=== PATIENT | female | born 1975 | race African-American/Black ===

== ENCOUNTER 2016-10-15 09:01 | Emergency (ER) | payer MEDICAID ==
[~2016-10-15] VITALS: Ht 157.5 cm; Wt 61.7 kg
[~2016-10-15 09:01] MED LIST: CIPROFLOXACIN500 M2 ORAL; FLUCONAZOLE100 MG ORAL; FLUCONAZOLE150 MG ORAL; IBUPROFEN600 MG ORAL; KEFLEX500 MG ORAL; NKM; NORCO 10/3251 EA ORAL; NORCO 5-325 TA1 EACH ORAL; PHENAZOPYRIDIN100 MG ORAL; ZOFRAN ODT4 MG ORAL; ZOFRAN4 MG ORAL
[2016-10-15] MEDS ORDERED: NKM (09:16)
[2016-10-15 09:32] LABS: APPEARANCE,URINE SLIGHTLY CLOUDY; KETONES,URINE 2+ (NEGATIVE); LEUKOCYTE ESTERASE ,URINE 2+ (NEGATIVE); NITRITE,URINE NEGATIVE (NEGATIVE); PH,URINE 7 (4.5-8.0); PROTEIN,URINE 1+ (NEGATIVE); UROBILINOGEN,URINE 4 MG/DL (0.0-1.0)
[2016-10-15 09:53] LABS: BACTERIA,URINE FEW /HPF; SQUAMOUS EPITHELIAL CELL,UR FEW /LPF (NONE/OCC); WBC,URINE 15-20 /HPF (0 - 2)
[2016-10-15] MEDS ORDERED: KEFLEX500 MG ORAL (10:04)
[2016-10-15] MEDS ORDERED: FLUCONAZOLE150 MG ORAL (10:04)
[2016-10-15] MEDS ORDERED: PHENAZOPYRIDIN100 MG ORAL (10:04)
[2016-10-15 10:11] VITALS: BP 103/66
--- NOTE | 2016-10-16 07:47 | Emergency Room Report ---
History of Present Illness General Chief Complaint: Female Urogenital Problems Source: Patient, Medical Record Present Illness HPI 40-year-old female presents ED complaining of dysuria. Patient states symptoms started 2 days ago. Notes burning discomfort urination. Notes some white curdish discharge as well. Has history of yeast infections. Pain is throbbing , 10 out of 10, worse with urination. Denies fevers or chills. Denies flank pain. Denies nausea or vomiting. Denies any vaginal eating. No aggravating or relieving factors. Denies any other associated symptoms Allergies: Coded Allergies: METOCLOPRAMIDE (Verified Allergy, Unknown, 03/09/11) PROCHLORPERAZINE (Verified Allergy, Unknown, 03/09/11) Patient History Past Medical History: none Past Surgical History: none Pertinent Family History: none Social History: Denies: alcohol use, drug use, smoking Last Menstrual Period: Partial hysterectomy Now: No : 2 Para: 2 Immunizations: UTD Reviewed Nursing Documentation: PMH: Agreed, PSxH: Agreed Review of Systems All Other Systems: negative except mentioned in HPI Physical Exam Vital Signs Date Time Temp Pulse Resp B/P Pulse Ox O2 Delivery O2 Flow Rate FiO2 10/15/16 09:11 98.6 85 16 101/69 100 Room Air Sp02 EP Interpretation: reviewed, normal General Appearance: no apparent distress, alert, GCS 15, non-toxic Head: normocephalic Eyes: bilateral eye PERRL, bilateral eye normal inspection ENT: normal ENT inspection Neck: full range of motion Respiratory: normal inspection Cardiovascular #1: normal inspection Gastrointestinal: normal bowel sounds, non tender, soft, non-distended, no guarding, no rebound Rectal: deferred Genitourinary: no CVA tenderness Musculoskeletal: normal inspection Neurologic: alert, oriented x3, responsive, motor strength/tone normal, sensory intact, speech normal Psychiatric: judgement/insight normal, memory normal, mood/affect normal, no suicidal/homicidal ideation Skin: normal inspection Medical Decision Making Diagnostic Impression: Primary Impression: UTI (urinary tract infection) Qualified Codes: N39.0 - Urinary tract infection, site not specified Additional Impression: Yeast infection ER Course Hospital Course 40-year-old female presents to ED complaining of dysuria Differential diagnoses include: UTI, cystitis, pyelonephritis Clinical course Patient placed on stretcher. After initial history and physical I ordered UA, urine . UA + For UTI. will treat with diflucan for yeast infection and abx Diagnosis - UTI, yeast infection Stable and discharged home with prescriptions for Rx keflex, pyridium, fluconazole. Instructed to followup with PMD. Return to ED if symptoms recur or worsen Labs Test 10/15/16 09:20 Urine Color Yellow Urine Appearance Slightly cloudy Urine pH 7 (4.5-8.0) Urine Specific [place] 1.010 (1.005-1.035) Urine Protein 1+ (NEGATIVE) Urine Glucose (UA) Negative (NEGATIVE) Urine Ketones 2+ (NEGATIVE) Urine Occult Blood 2+ (NEGATIVE) Urine Nitrite Negative (NEGATIVE) Urine Bilirubin Negative (NEGATIVE) Urine Urobilinogen 4 MG/DL (0.0-1.0) Urine Leukocyte Esterase 2+ (NEGATIVE) Urine RBC 2-4 /HPF (0 - 2) Urine WBC 15-20 /HPF (0 - 2) Urine Squamous Epithelial Cells Few /LPF (NONE/OCC) Urine Bacteria Few /HPF (NONE) Urine HCG, Qualitative Negative Last Vital Signs Date Time Temp Pulse Resp B/P Pulse Ox O2 Delivery O2 Flow Rate FiO2 10/15/16 10:11 98.6 80 14 103/66 97 Room Air Status: improved Disposition: HOME, SELF-CARE Condition: Stable Scripts Phenazopyridine Hcl* (PYRIDIUM*) 100 Mg Tablet 100 MG ORAL THREE TIMES A DAY for 3 Days, TAB Prov: JANE HORN M.D. 10/15/16 Fluconazole (FLUCONAZOLE) 150 Mg Tablet 150 MG ORAL ONCE A WEEK, #2 TAB Prov: JANE HORN M.D. 10/15/16 Cephalexin* (KEFLEX*) 500 Mg Capsule 500 MG ORAL Q6H, #28 CAP 0 Refills Prov: JANE HORN M.D. 10/15/16 Referrals: GABRIELA HERNANDEZ (PCP) Patient Instructions: Urinary Tract Infection, Vaginal Yeast Infection, Adult JANE HORN M.D. Oct 16, 2016 07:47
== END 2016-10-15 10:14 | disposition home or self-care (01) ==
LOC: EMR 09:32
DX: N39.0 Urinary tract infection, site not specified (principal); B37.9 Candidiasis, unspecified; Z90.710 Acquired absence of both cervix and uterus
CPT/HCPCS: 81003; 81025; 87086; 87181; 99284

== ENCOUNTER 2016-11-10 11:22 | Emergency (ER) | payer MEDICAID ==
[~2016-11-10] VITALS: Ht 154.9 cm; Wt 62.1 kg
[2016-11-10 11:30] VITALS: BP 115/78
[2016-11-10] MEDS ORDERED: IBUPROFEN600 MG ORAL (11:51)
[2016-11-10] MEDS ORDERED: ROBAXIN-750750 MG PO (11:51)
--- NOTE | 2016-11-10 11:55 | Emergency Room Report ---
History of Present Illness General Chief Complaint: Pain Source: Patient Present Illness HPI Patient presents with complaints of pain to the right trapezius area Patient reports that last week she had moved Did not feel much discomfort just after that however several days after she started to feel increased pain that region She feels it is radiation upward to the side of the neck also down the right arm Denies any other fall or trauma Denies any chest pain or shortness of breath Rates the pain is 7/10 very minimal improvement with Motrin Allergies: Coded Allergies: METOCLOPRAMIDE (Verified Allergy, Unknown, 03/09/11) PROCHLORPERAZINE (Verified Allergy, Unknown, 03/09/11) Patient History Past Medical History: see triage record Pertinent Family History: none Last Menstrual Period: partial hysterectomy Reviewed Nursing Documentation: PMH: Agreed, PSxH: Agreed Nursing Documentation-PMH Past Medical History: No Stated History Review of Systems All Other Systems: negative except mentioned in HPI Physical Exam Vital Signs Date Time Temp Pulse Resp B/P Pulse Ox O2 Delivery O2 Flow Rate FiO2 11/10/16 11:30 97.3 67 14 115/78 96 Room Air Sp02 EP Interpretation: reviewed, normal General Appearance: well appearing, no apparent distress Head: normocephalic, atraumatic Eyes: bilateral eye EOMI, bilateral eye PERRL ENT: normal pharynx Neck: supple, other - Tender on palpation of the mid point right trapezius, there is some increased muscle tone that region as well, no supraclavicular lymphadenopathy is palpated, midline C-spine is nontender with no obvious step- offs Respiratory: lungs clear Musculoskeletal: other - as above Neurologic: alert, oriented x3, responsive, snubber III-XII nml as tested Skin: no rash, warm/dry Lymphatic: no adenopathy Medical Decision Making Diagnostic Impression: Primary Impression: muscle strain ER Course With the lack of any acute trauma With the patient's history of recent moving and increased muscle skeletal use given the clinical exam patient's findings appear to be in line with musculoskeletal sprain/strain patient will continue on anti-inflammatories Stretching exercises and muscle laxation and follow closely with outpatient primary physician Last Vital Signs Date Time Temp Pulse Resp B/P Pulse Ox O2 Delivery O2 Flow Rate FiO2 11/10/16 11:30 97.3 67 14 115/78 96 Room Air Status: improved Disposition: HOME, SELF-CARE Condition: Improved Scripts Methocarbamol* (ROBAXIN-750*) 750 Mg Tablet 750 MG PO TID, #21 TAB 0 Refills Prov: ROSALIA TAN D.O. 11/10/16 Ibuprofen* (MOTRIN*) 600 Mg Tablet 600 MG ORAL Q8H Y for For Pain, #30 TAB 0 Refills Prov: ROSALIA TAN D.O. 11/10/16 Patient Instructions: Muscle Strain, [id number] Additional Instructions: Patient is provided with the discharge instructions notified to follow up with primary doctor in the next 2-3 days otherwise return to the er with any worsening symptoms. Please note that this report is being documented using [employer] technology. This can lead to erroneous entry secondary to incorrect interpretation by the dictating instrument. ROSALIA TAN D.O. Nov 10, 2016 11:55
[2016-11-10] MEDS ORDERED: Methocarbamol 750mg tab ORAL ONE (12:00)
[2016-11-10 12:02] VITALS: BP 118/72
== END 2016-11-10 12:05 | disposition home or self-care (01) ==
LOC: EMR 11:45
DX: T14.8 Other injury of unspecified body region (principal); X58.XXXA Exposure to other specified factors, initial encounter; Y93.9 Activity, unspecified; Y92.9 Unspecified place or not applicable
CPT/HCPCS: 99284

== ENCOUNTER 2017-03-12 00:43 | Emergency (ER) | payer MEDICAID ==
[~2017-03-12] VITALS: Ht 154.9 cm; Wt 65.8 kg
[~2017-03-12 00:43] MED LIST changes: +ROBAXIN-750750 MG PO
[2017-03-12 01:20] VITALS: BP 104/55
[2017-03-12] MEDS ORDERED: Norco 5mg/325mg tab ORAL ONE (01:30)
[2017-03-12 01:56] LABS: APPEARANCE,URINE CLEAR; KETONES,URINE NEGATIVE (NEGATIVE); LEUKOCYTE ESTERASE ,URINE NEGATIVE (NEGATIVE); NITRITE,URINE NEGATIVE (NEGATIVE); PH,URINE 6 (4.5-8.0); PROTEIN,URINE NEGATIVE (NEGATIVE); UROBILINOGEN,URINE NORMAL MG/DL (0.0-1.0)
[2017-03-12] MEDS ORDERED: NAPROSYN500 M1 ORAL (02:07)
--- NOTE | 2017-03-12 02:08 | Emergency Room Report ---
History of Present Illness General Chief Complaint: Lower Back Pain or Injury Source: Patient Present Illness HPI Is 41-year-old female presents with chief complaint of upper back pain. Pain ongoing for last few days. Worse with movement. No trauma or fever. No nausea no vomiting. No urinary complaint. Pain is 10 out of 10. No radiation. No incontinence of bowel or urine. Allergies: Coded Allergies: METOCLOPRAMIDE (Verified Allergy, Unknown, 03/09/11) PROCHLORPERAZINE (Verified Allergy, Unknown, 03/09/11) Patient History Past Medical History: see triage record, old chart reviewed Past Surgical History: other Pertinent Family History: none Social History: Denies: smoking Last Menstrual Period: none anymore Now: No Immunizations: other Reviewed Nursing Documentation: PMH: Agreed, PSxH: Agreed Nursing Documentation-PM Past Medical History: No Stated History Review of Systems Eye: Denies: blurred vision, eye pain ENT: Denies: ear pain, nose congestion, throat swelling Respiratory: Denies: cough, shortness of breath Cardiovascular: Denies: chest pain, palpitations Gastrointestinal: Denies: abdominal pain, diarrhea, nausea, vomiting Musculoskeletal: Reports: back pain, Denies: joint pain Skin: Denies: rash Neurological: Denies: headache, numbness Endocrine: Denies: increased thirst, increased urine Hematologic/Lymphatic: Denies: easy bruising All Other Systems: negative except mentioned in HPI Physical Exam Vital Signs Date Time Temp Pulse Resp B/P Pulse Ox O2 Delivery O2 Flow Rate FiO2 03/12/17 01:13 98.6 86 18 104/55 99 Room Air vitals normal Sp02 EP Interpretation: reviewed, normal General Appearance: well appearing, no apparent distress, alert Head: normocephalic, atraumatic Eyes: bilateral eye EOMI, bilateral eye PERRL ENT: hearing grossly normal, normal pharynx Neck: full range of motion, supple, no meningismus Respiratory: chest non-tender, lungs clear, normal breath sounds Cardiovascular #1: regular rate, rhythm, no murmur Gastrointestinal: normal bowel sounds, non tender, no mass, no organomegaly, no bruit, non-distended Musculoskeletal: gait/station normal, normal range of motion, other - Patient with diffuse tenderness with palpation to the thoracic area. No trauma. No anesthesia. No midline percussive tenderness. Psychiatric: mood/affect normal Skin: warm/dry Medical Decision Making Diagnostic Impression: Primary Impression: Thoracic back pain Qualified Codes: M54.6 - Pain in thoracic spine ER Course Patient presents with thoracic strain/pain. Is reproducible. Worse with movement. This is muscle skeletal in nature. No evidence of infection. No evidence of fracture dislocation. Urine is negative for infection status no evidence of pyelonephritis. I see no need for x-rays since patient has no trauma. I see no evidence of cauda equina syndrome, spinal after abscess or neoplastic process. We'll discharge home. Last Vital Signs Date Time Temp Pulse Resp B/P Pulse Ox O2 Delivery O2 Flow Rate FiO2 03/12/17 01:20 98.6 18 104/55 99 Room Air 03/12/17 01:13 86 Status: improved Disposition: HOME, SELF-CARE Condition: Stable Scripts Naproxen* (NAPROSYN*) 500 Mg Tablet 500 MG ORAL TWICE A DAY, #30 TAB Prov: STACI LANE M.D. 03/12/17 Patient Instructions: Back Pain, Adult Additional Instructions: Followup with your DrSol in 7 days. Return if symptom worsen this. STACI LANE M.D. Mar 12, 2017 02:08
[2017-03-12 02:17] VITALS: BP 104/55
== END 2017-03-12 02:17 | disposition home or self-care (01) ==
LOC: EMR 01:28
DX: M54.6 Pain in thoracic spine (principal); Z88.8 Allergy status to other drugs, medicaments and biological substances
CPT/HCPCS: 80300; 81003; 81025; 99283

== ENCOUNTER 2017-07-19 11:31 | Emergency (ER) | payer MEDICAID ==
[~2017-07-19] VITALS: Ht 154.9 cm; Wt 61.2 kg
[~2017-07-19 11:31] MED LIST changes: +NAPROSYN500 M1 ORAL
[2017-07-19] MEDS ORDERED: NKM (11:43)
[2017-07-19 11:46] VITALS: BP 99/60
[2017-07-19] MEDS ORDERED: Hydromorphone 0.5mg/0.5ml inj IVP ONE ×2 (12:00→14:15)
[2017-07-19] MEDS ORDERED: Ketorolac 30mg Inj IV ONE (12:00)
[2017-07-19 12:32] LABS: APPEARANCE,URINE TURBID; BILIRUBIN, URINE NEGATIVE (NEGATIVE); GLUCOSE, URINE (UA) NEGATIVE (NEGATIVE); KETONES,URINE 1+ (NEGATIVE); LEUKOCYTE ESTERASE ,URINE NEGATIVE (NEGATIVE); NITRITE,URINE NEGATIVE (NEGATIVE); PH,URINE 6 (4.5-8.0); PROTEIN,URINE NEGATIVE (NEGATIVE); UROBILINOGEN,URINE 1 MG/DL (0.0-1.0)
[2017-07-19 12:33] LABS: COLOR,URINE YELLOW
[2017-07-19 12:35] LABS: EOSINOPHILS % (AUTO) 1.5 % (0.0-3.0); HEMATOCRIT 43.2 % (37.0-47.0); HEMOGLOBIN 14.1 G/DL (12.0-16.0); LYMPHOCYTES % (AUTO) 34.1 % (20.0-45.0); MEAN CORPUSCULAR VOLUME 93 FL (80-99); MONOCYTES % (AUTO) 6.9 % (1.0-10.0); NEUTROPHILS % (AUTO) 56.6 % (45.0-75.0); PLATELET COUNT 263 K/UL (150-450); RED BLOOD COUNT 4.62 M/UL (4.20-5.40); RED CELL DISTRIBUTION WIDTH 11.2 % (11.6-14.8); WHITE BLOOD COUNT 5.4 K/UL (4.8-10.8)
[2017-07-19 12:50] LABS: ALANINE AMINOTRANSFERASE 22 U/L (12-78); ALBUMIN 3.8 G/DL (3.4-5.0); ALBUMIN/GLOBULIN RATIO 1.1 (1.0-2.7); ALKALINE PHOSPHATASE 53 U/L (46-116); ANION GAP 7 mmol/L (5-15); ASPARTATE AMINO TRANSFERASE 19 U/L (15-37); BILIRUBIN,TOTAL 0.5 MG/DL (0.2-1.0); BLOOD UREA NITROGEN 7 mg/dL (7-18); CALCIUM 8.8 MG/DL (8.5-10.1); CARBON DIOXIDE 28 MMOL/L (21-32); CHLORIDE 101 MMOL/L (98-107); CREATININE 0.9 MG/DL (0.55-1.30); POTASSIUM 3.5 MMOL/L (3.5-5.1); SODIUM 136 MMOL/L (136-145)
[2017-07-19 14:00] VITALS: BP 102/65
--- NOTE | 2017-07-19 14:16 | Diagnostic Imaging Report ---
Indication: Left-sided pelvic pain, history of left ovarian cysts Technique: Transabdominal and transvaginal images Comparison: 01/16/2012 Findings: The uterus is surgically absent. Cervical remnant is visualized. Right ovary measures 3.4 cm in length, contains several follicles, including a complex follicle with some internal echoes and another complex septated follicle. The left ovary measures 2.7 cm in length. Impression: Status post supracervical hysterectomy Otherwise unremarkable
[2017-07-19 14:41] VITALS: BP 104/47
[2017-07-19] MEDS ORDERED: cefTRIAXone 1 GM in NS 55 ML IVPB ONE (15:15)
[2017-07-19] MEDS ORDERED: metroNIDAZOLE 500mg tab ORAL ONE (15:15)
[2017-07-19] MEDS ORDERED: Azithromycin 250mg tab ORAL ONE (15:15)
--- NOTE | 2017-07-19 15:37 | Emergency Room Report ---
History of Present Illness General Chief Complaint: Abdominal Pain Source: Patient Present Illness HPI Patient presents emergency department today complaining of abdominal pain. Patient states that she's had suprapubic discomfort and cramps patient has a history of ovarian cysts and feels that she might be getting another ovarian cyst. Of note she did have recent sexual intercourse. She denies any definite vaginal discharge. Denies any dysuria or frequency. Denies any fever chest pain shortness breath. No complaint or noted. Symptoms noted moderate.No other modifying factors. No other associated signs and symptoms. No other complaints were noted. Allergies: Coded Allergies: METOCLOPRAMIDE (Verified Allergy, Unknown, 03/09/11) PROCHLORPERAZINE (Verified Allergy, Unknown, 03/09/11) Patient History Past Medical History: other - ovarian cyst PSxH Narrative pelvic surgery for ovarian cysts and partial hystercetomy Pertinent Family History: none Social History: Denies: smoking, alcohol use, drug use Now: No Reviewed Nursing Documentation: PMH: Agreed, PSxH: Agreed Nursing Documentation-PMH Past Medical History: No History, Except For Review of Systems All Other Systems: negative except mentioned in HPI Physical Exam Vital Signs Date Time Temp Pulse Resp B/P (MAP) Pulse Ox O2 Delivery O2 Flow Rate FiO2 07/19/17 11:36 98.1 63 17 127/68 100 Room Air Sp02 EP Interpretation: reviewed, normal General Appearance: normal inspection, well appearing, no apparent distress, alert Head: atraumatic Eyes: bilateral eye normal inspection ENT: normal ENT inspection, hearing grossly normal, normal voice Neck: normal inspection, full range of motion, supple, no bony tend Respiratory: normal inspection, lungs clear, normal breath sounds, no respiratory distress, no retraction, no wheezing Cardiovascular #1: regular rate, rhythm, no edema Gastrointestinal: normal inspection, normal bowel sounds, soft, no guarding, no hernia, tenderness - suprapubic region Genitourinary: no CVA tenderness, os closed, other - white/yellowish thick vaginal discharge Musculoskeletal: normal inspection, back normal, normal range of motion Neurologic: normal inspection, alert, responsive, speech normal Psychiatric: normal inspection, judgement/insight normal, mood/affect normal Skin: normal inspection, normal color, no rash Medical Decision Making Diagnostic Impression: Primary Impression: Abdominal pain Additional Impression: Vaginitis ER Course Patient presents emergency department today complaining of pelvic pain. Differential considerations include vaginitis, ectopic , ovarian cyst just to name a few.Given the severity of the patient's presentation I felt this is a highly complex patient. This patient required extensive workup. Patient laboratory workup was not present. Patient's pelvic ultrasound did not show any evidence ovarian cysts. Patient's pelvic exam however show discharged in this is concerning for possible STD. Therefore patient was started on IV antibiotics Rocephin and Zithromax and Flagyl orally. Patient will be treated for PID. Because of patient's persistent pain we'll obtain a CT scan. CT scan is negative and will likely discharge patient home. Will advise patient follow with [facility]. And return to emergency room for any worsening symptoms and as needed. Labs Test 07/19/17 12:15 07/19/17 12:20 Urine Color Yellow Urine Appearance Turbid Urine pH 6 (4.5-8.0) Urine Specific [place] 1.015 (1.005-1.035) Urine Protein Negative (NEGATIVE) Urine Glucose (UA) Negative (NEGATIVE) Urine Ketones 1+ (NEGATIVE) Urine Occult Blood Negative (NEGATIVE) Urine Nitrite Negative (NEGATIVE) Urine Bilirubin Negative (NEGATIVE) Urine Urobilinogen 1 MG/DL (0.0-1.0) Urine Leukocyte Esterase Negative (NEGATIVE) Urine HCG, Qualitative Negative White Blood Count 5.4 K/UL (4.8-10.8) Red Blood Count 4.62 M/UL (4.20-5.40) Hemoglobin 14.1 G/DL (12.0-16.0) Hematocrit 43.2 % (37.0-47.0) Mean Corpuscular Volume 93 FL (80-99) Mean Corpuscular Hemoglobin 30.5 PG (27.0-31.0) Mean Corpuscular Hemoglobin Concent 32.6 G/DL (32.0-36.0) Red Cell Distribution Width 11.2 % (11.6-14.8) Platelet Count 263 K/UL (150-450) Mean Platelet Volume 6.8 FL (6.5-10.1) Neutrophils (%) (Auto) 56.6 % (45.0-75.0) Lymphocytes (%) (Auto) 34.1 % (20.0-45.0) Monocytes (%) (Auto) 6.9 % (1.0-10.0) Eosinophils (%) (Auto) 1.5 % (0.0-3.0) Basophils (%) (Auto) 1.0 % (0.0-2.0) Sodium Level 136 MMOL/L (136-145) Potassium Level 3.5 MMOL/L (3.5-5.1) Chloride Level 101 MMOL/L (98-107) Carbon Dioxide Level 28 MMOL/L (21-32) Anion Gap 7 mmol/L (5-15) Blood Urea Nitrogen 7 mg/dL (7-18) Creatinine 0.9 MG/DL (0.55-1.30) Estimat Glomerular Filtration Rate > 60 mL/min (>60) Glucose Level 85 MG/DL (74-106) Calcium Level 8.8 MG/DL (8.5-10.1) Total Bilirubin 0.5 MG/DL (0.2-1.0) Aspartate Amino Transf (AST/SGOT) 19 U/L (15-37) Alanine Aminotransferase (ALT/SGPT) 22 U/L (12-78) Alkaline Phosphatase 53 U/L (46-116) Total Protein 7.4 G/DL (6.4-8.2) Albumin 3.8 G/DL (3.4-5.0) Globulin 3.6 g/dL Albumin/Globulin Ratio 1.1 (1.0-2.7) Lipase 183 U/L (73-393) CT/MRI/US Diagnostic Results CT/MRI/US Diagnostic Results : Imaging Test Ordered: us neg for torsion or cyst Last Vital Signs Date Time Temp Pulse Resp B/P (MAP) Pulse Ox O2 Delivery O2 Flow Rate FiO2 07/19/17 14:41 97.0 64 16 104/47 99 Room Air Status: improved Disposition: HOME, SELF-CARE Condition: Stable Referrals: GABRIELA HERNANDEZ (PCP) JOSE LAMA M.D. Jul 19, 2017 15:37
[2017-07-19] MEDS ORDERED: NORCO 5-325 TA1 EACH ORAL (15:38)
[2017-07-19] MEDS ORDERED: DIFLUCAN100 MG ORAL (15:38)
[2017-07-19] MEDS ORDERED: IBUPROFEN600 MG ORAL (15:38)
--- NOTE | 2017-07-19 16:24 | Diagnostic Imaging Report ---
Clinical Indication: Left lower quadrant pain, nausea, vomiting Technique: No oral contrast utilized, per emergency room physician request IV administration nonionic contrast. Venous phase spiral acquisition obtained through the abdomen and pelvis. Multiplanar reconstructions were generated. Total dose length product 586 mGycm. CTDIvol(s) 12 mGy. Dose reduction achieved using automated exposure control Comparison: 11/30/[address] scan, also 09/10/[address] Findings: The appendix is prominent but gas filled, appears normal and unchanged from the previous exam. No evidence of diverticulosis or diverticulitis. No small bowel distention. No free or loculated intraperitoneal air or fluid is evident. Some dense material is seen dependently within the stomach. The distal esophagus is unremarkable. There is equivocal mild gastric antral wall thickening. The gallbladder is surgically absent. The extrahepatic bile ducts are somewhat ectatic, common bile duct measuring up to 8 mm in diameter. This is unchanged from the prior exam. There is mild central intrahepatic biliary ductal dilatation. There is focal fatty infiltration in the usual location adjacent to the falciform ligament, a new finding. No other focal abnormality. The pancreas, spleen, adrenals, right kidney are unremarkable. The left kidney demonstrates subcentimeter low-attenuation interpolar region lesion which is too small to characterize but unchanged from the previous exam. The previously reported left lower pole renal calyceal calculus is equivocally visualized currently, less well-demonstrated due to the presence of IV contrast on the current exam. No evidence of ureteral calculi, hydronephrosis, or hydroureter. No retroperitoneal or mesenteric mass or adenopathy. The patient is status post supracervical hysterectomy with cervical stump still present. Prominent follicles are seen in the right ovary, also demonstrated on recent ultrasound. No pelvic mass or adenopathy. Previously demonstrated right ovarian cyst is no longer evident. Labial jewelry is present. The included lung bases are clear. The bones are unremarkable. Impression: Equivocal mild gastric antral wall thickening, gastritis or peptic ulcer disease not completely excludable. Correlate with clinical findings No acute process otherwise Mild intrahepatic biliary ductal dilatation, also evident previously. No definite definite obstructing lesion. Nonetheless, occult downstream obstruction not completely excludable, correlation with liver function tests is advised Postsurgical changes as described, including prior supracervical hysterectomy and cholecystectomy. Nonobstructive left lower pole renal calyceal calculus, also previously demonstrated New finding of focal fatty infiltration in the liver The CT scanner at [facility] is accredited by the [employer] and the scans are performed using protocols designed to limit radiation exposure to as low as reasonably achievable to attain images of sufficient resolution adequate for diagnostic evaluation.
[2017-07-19] MEDS ORDERED: METROGEL-VAGINA70 G1 VAGIN (16:47)
[2017-07-19 16:50] VITALS: BP 108/60
== END 2017-07-19 16:50 | disposition home or self-care (01) ==
LOC: EMR 12:20
DX: R10.9 Unspecified abdominal pain (principal); N76.0 Acute vaginitis; Z90.711 Acquired absence of uterus with remaining cervical stump; Z88.8 Allergy status to other drugs, medicaments and biological substances; K76.0 Fatty (change of) liver, not elsewhere classified; Z90.49 Acquired absence of other specified parts of digestive tract
CPT/HCPCS: 36415; 74177; 76856; 80053; 81003; 81025; 83690; 85025; 87210; 96361; 96374; 96375; 99284; J0696; J1170; J1885; J2405; Q0144; Q9967

== ENCOUNTER 2017-09-01 16:14 | Emergency (ER) | payer MEDICAID ==
[~2017-09-01] VITALS: Ht 154.9 cm; Wt 59.4 kg
[~2017-09-01 16:14] MED LIST changes: +DIFLUCAN100 MG ORAL; +METROGEL-VAGINA70 G1 VAGIN
[2017-09-01] MEDS ORDERED: ROBAXIN-750750 MG PO (17:56)
[2017-09-01] MEDS ORDERED: NAPROXEN500 M2 ORAL (17:56)
[2017-09-01 18:10] VITALS: BP 115/79
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
== END 2017-09-01 18:10 | disposition home or self-care (01) ==
LOC: EMR 17:00
DX: S16.1XXA Strain of muscle, fascia and tendon at neck level, initial encounter (principal); V49.40XA Driver injured in collision with unspecified motor vehicles in traffic accident, initial encounter; Y92.410 Unspecified street and highway as the place of occurrence of the external cause; Z88.8 Allergy status to other drugs, medicaments and biological substances
CPT/HCPCS: 99283

== ENCOUNTER 2017-09-07 14:57 | Emergency (ER) | payer MEDICAID ==
[~2017-09-07] VITALS: Ht 154.9 cm; Wt 60.3 kg
[~2017-09-07 14:57] MED LIST changes: +NAPROXEN500 M2 ORAL
[2017-09-07 15:03] VITALS: BP 113/85
[2017-09-07] MEDS ORDERED: IBUPROFEN600 MG ORAL (16:19)
[2017-09-07] MEDS ORDERED: ACETAMINOPHEN-1 EAC1 ORAL (16:19)
[2017-09-07] MEDS ORDERED: ZOFRAN4 M3 ORAL (16:19)
[2017-09-07] MEDS ORDERED: Norco 5mg/325mg tab ORAL ONE (16:30)
[2017-09-07 16:38] VITALS: BP 122/83
[2017-09-07 16:39] VITALS: BP 122/83
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
--- NOTE | 2017-09-08 11:03 | Diagnostic Imaging Report ---
Indication: Pain Technique: XRAY Shoulder Compl L Comparison: None Findings: There is no acute fracture or dislocation. There is rounded calcification superior to the humeral head may be sequela of remote trauma or may represent calcific tendinitis. Consider further evaluation with MRI of the shoulder. Imaged left lung is clear. Impression: No acute fracture or dislocation. Calcification superior to the humeral head may be sequela of remote trauma or suggest calcific tendinitis. MRI of the shoulder recommended for better evaluation. This is slightly discrepant from the interpretation by the treating ER physician. Findings and follow-up imaging recommendations discussed with Dr. Kevin of the ED at 10:50 AM on 09/08/2017.
== END 2017-09-07 16:39 | disposition home or self-care (01) ==
LOC: EMR 15:40
DX: M25.512 Pain in left shoulder (principal); S06.0X0D Concussion without loss of consciousness, subsequent encounter; V49.40XD Driver injured in collision with unspecified motor vehicles in traffic accident, subsequent encounter; Z88.8 Allergy status to other drugs, medicaments and biological substances
CPT/HCPCS: 70450; 99284

== ENCOUNTER 2017-10-25 09:56 | Emergency (ER) | payer MEDICAID ==
[~2017-10-25] VITALS: Ht 154.9 cm; Wt 62.1 kg
[~2017-10-25 09:56] MED LIST changes: +ACETAMINOPHEN-1 EAC1 ORAL; +ZOFRAN4 M3 ORAL
[2017-10-25 10:19] LABS: APPEARANCE,URINE CLEAR; BILIRUBIN, URINE NEGATIVE (NEGATIVE); COLOR,URINE PALE YELLOW; GLUCOSE, URINE (UA) NEGATIVE (NEGATIVE); KETONES,URINE NEGATIVE (NEGATIVE); LEUKOCYTE ESTERASE ,URINE 3+ (NEGATIVE); NITRITE,URINE POSITIVE (NEGATIVE); PH,URINE 6 (4.5-8.0); PROTEIN,URINE NEGATIVE (NEGATIVE); UROBILINOGEN,URINE NORMAL MG/DL (0.0-1.0)
[2017-10-25] MEDS ORDERED: FLUCONAZOLE100 MG ORAL (10:52)
[2017-10-25] MEDS ORDERED: CIPROFLOXACIN500 M2 ORAL (10:52)
--- NOTE | 2017-10-25 10:55 | Emergency Room Report ---
History of Present Illness General Chief Complaint: Female Urogenital Problems Source: Patient, Medical Record Present Illness HPI Present with complaints of burning with urination she reports that she was put on amoxicillin recently by her primary physician however feels that she still has urinary frequency and discomfort Denies any fevers or chills denies any vomiting or diarrhea denies any flank pain Denies any chest pain or shortness of breath Pain is 3/10 burning at the urethra and bladder Patient also reports that when she takes antibiotics she gets a mild discharge and needs medication for that Allergies: Coded Allergies: METOCLOPRAMIDE (Verified Allergy, Unknown, 03/09/11) PROCHLORPERAZINE (Verified Allergy, Unknown, 03/09/11) Patient History Past Medical History: see triage record Pertinent Family History: none Last Menstrual Period: hysterectomy Reviewed Nursing Documentation: PMH: Agreed, PSxH: Agreed Nursing Documentation-PMH Past Medical History: No History, Except For Review of Systems All Other Systems: negative except mentioned in HPI Physical Exam Vital Signs Date Time Temp Pulse Resp B/P (MAP) Pulse Ox O2 Delivery O2 Flow Rate FiO2 10/25/17 09:58 97.9 63 18 107/68 98 Room Air Sp02 EP Interpretation: reviewed, normal General Appearance: well appearing, no apparent distress Head: normocephalic, atraumatic Eyes: bilateral eye PERRL, bilateral eye EOMI ENT: hearing grossly normal, normal pharynx, TMs + canals normal, uvula midline Neck: full range of motion, supple, no meningismus, no bony tend Respiratory: lungs clear, normal breath sounds, no rhonchi, no respiratory distress, no retraction, no accessory muscle use Cardiovascular #1: normal peripheral pulses, regular rate, rhythm, no edema, no gallop, no JVD, no murmur Gastrointestinal: normal bowel sounds, non tender, soft, no mass, no organomegaly, non-distended, no guarding, no hernia, no pulsatile mass, no rebound Genitourinary: no CVA tenderness Musculoskeletal: normal inspection Neurologic: oriented x3, responsive, concrete form setter III-XII nml as tested, motor strength/ tone normal, sensory intact Psychiatric: mood/affect normal Skin: normal color, no rash, warm/dry, palpation normal Lymphatic: normal inspection, no adenopathy Medical Decision Making Diagnostic Impression: Primary Impression: UTI (urinary tract infection) ER Course With the patient's history and examination, multiple differentials considered, including but not limited to , ectopic , ovarian torsion, gastritis, cholecystitis, pancreatitis, appendicitis Patient has a fairly benign abdominal exam Complaints other clinically With bladder infection urine sample does show evidence of white blood cells patient is placed on Cipro Patient reports that last time she had IV and antibiotics and was requesting that she had the same I did not feel the patient meets criteria for IV placement As she does not show signs of pyelonephritis or sepsis patient is tolerating oral intake and is appropriate candidate for initial conservative outpatient trial Labs Test 10/25/17 10:01 Urine Color Pale yellow Urine Appearance Clear Urine pH 6 (4.5-8.0) Urine Specific [place] 1.010 (1.005-1.035) Urine Protein Negative (NEGATIVE) Urine Glucose (UA) Negative (NEGATIVE) Urine Ketones Negative (NEGATIVE) Urine Occult Blood 2+ (NEGATIVE) Urine Nitrite Positive (NEGATIVE) Urine Bilirubin Negative (NEGATIVE) Urine Urobilinogen Normal MG/DL (0.0-1.0) Urine Leukocyte Esterase 3+ (NEGATIVE) Urine RBC 2-4 /HPF (0 - 2) Urine WBC 10-15 /HPF (0 - 2) Urine Squamous Epithelial Cells Few /LPF (NONE/OCC) Urine Bacteria Few /HPF (NONE) Urine HCG, Qualitative Negative Last Vital Signs Date Time Temp Pulse Resp B/P (MAP) Pulse Ox O2 Delivery O2 Flow Rate FiO2 10/25/17 09:58 97.9 63 18 107/68 98 Room Air Status: unchanged Disposition: HOME, SELF-CARE Condition: Stable Scripts Fluconazole (FLUCONAZOLE) 100 Mg Tablet 200 MG ORAL DAILY, #2 TAB 0 Refills Prov: ROSALIA TAN D.O. 10/25/17 Ciprofloxacin Hcl* (CIPROFLOXACIN HCL*) 500 Mg Tablet 500 MG ORAL Q12H, #14 TAB 0 Refills Prov: ROSALIA TAN D.O. 10/25/17 Referrals: [facility],REFERRING (PCP) Patient Instructions: Urinary Tract Infection Additional Instructions: Patient is provided with the discharge instructions notified to follow up with primary doctor in the next 2-3 days otherwise return to the er with any worsening symptoms. Please note that this report is being documented using [employer] technology. This can lead to erroneous entry secondary to incorrect interpretation by the dictating instrument. ROSALIA TAN D.O. Oct 25, 2017 10:55
[2017-10-25 11:12] VITALS: BP 107/68
== END 2017-10-25 11:15 | disposition home or self-care (01) ==
LOC: EMR 10:39
DX: N39.0 Urinary tract infection, site not specified (principal); Z88.8 Allergy status to other drugs, medicaments and biological substances
CPT/HCPCS: 81003; 81025; 87086; 87181; 99284

== ENCOUNTER 2017-12-12 21:26 | Emergency (ER) | payer MEDICAID ==
[~2017-12-12] VITALS: Ht 154.9 cm; Wt 64.0 kg
[2017-12-12] MEDS ORDERED: NKM (21:32)
[2017-12-12 21:35] VITALS: BP 138/78
[2017-12-12 21:50] LABS: APPEARANCE,URINE VERY CLOUDY; BILIRUBIN, URINE 1+ (NEGATIVE); GLUCOSE, URINE (UA) NEGATIVE (NEGATIVE); KETONES,URINE 1+ (NEGATIVE); LEUKOCYTE ESTERASE ,URINE 3+ (NEGATIVE); NITRITE,URINE NEGATIVE (NEGATIVE); PH,URINE 7 (4.5-8.0); PROTEIN,URINE 3+ (NEGATIVE); UROBILINOGEN,URINE 4 MG/DL (0.0-1.0)
[2017-12-12 21:51] LABS: COLOR,URINE YELLOW
--- NOTE | 2017-12-12 21:51 | Emergency Room Report ---
History of Present Illness General Chief Complaint: Abdominal Pain Source: Patient Present Illness HPI 42-year-old female, history of partial hysterectomy, frequent UTIs, presenting with 1 day of hematuria, dysuria, suprapubic crampy pain. States that it has been getting worse today. No nausea vomiting diarrhea. Complains of chills but no actual fever. No abnormal vaginal bleeding or discharge. Denies possibility of having STD Allergies: Coded Allergies: METOCLOPRAMIDE (Verified Allergy, Unknown, 03/09/11) PROCHLORPERAZINE (Verified Allergy, Unknown, 03/09/11) Patient History Past Medical History: see triage record Past Surgical History: none Pertinent Family History: none Now: No - Hysterectomy 2007 : 6 Para: 2 Reviewed Nursing Documentation: PMH: Agreed; PSxH: Agreed Review of Systems All Other Systems: negative except mentioned in HPI Physical Exam Vital Signs Date Time Temp Pulse Resp B/P (MAP) Pulse Ox O2 Delivery O2 Flow Rate FiO2 12/12/17 21:28 98.2 95 22 138/78 96 Room Air 98.2 Sp02 EP Interpretation: reviewed, normal General Appearance: alert, GCS 15, non-toxic, moderate distress Head: normocephalic, atraumatic Eyes: bilateral eye normal inspection, bilateral eye PERRL, bilateral eye EOMI ENT: normal ENT inspection, normal pharynx, normal voice, moist mucus membranes Neck: normal inspection, full range of motion, supple Respiratory: normal inspection, lungs clear, normal breath sounds, no respiratory distress, no retraction, no wheezing, speaking full sentences, chest symmetrical Cardiovascular #1: normal inspection, regular rate, rhythm, normal capillary refill Cardiovascular #2: 2+ radial (R), 2+ radial (L) Gastrointestinal: other - Suprapubic tenderness, no right lower quadrant or left lower quadrant tenderness, soft abdomen no rebound Musculoskeletal: normal inspection, back normal, normal range of motion, non- tender Neurologic: normal inspection, alert, oriented x3, responsive, motor strength/ tone normal, sensory intact, normal gait, speech normal Psychiatric: normal inspection, judgement/insight normal, memory normal Skin: normal inspection, normal color, no rash, warm/dry, well hydrated, normal turgor Medical Decision Making Diagnostic Impression: Primary Impression: UTI (urinary tract infection) ER Course 42-year-old female yo F with dysuria, hematuria, suprapubic pain DDX: UTI / cystitis vs. pyelo vs STD Plan: UA, UCX ER course: UA positive - upon previous charts, pt has hx of ESBL that is susceptible to cipro and levaquin. pt states cipro made her sick and did not work. levaquin gives Disposition: Patient will be discharged home with prescription of antibiotics. Strict return precautions to discussed with patient such as high fever, chills, abdominal pain, nausea or vomiting. Patient verbalized understanding. Patient instructed to follow up with primary care doctor within 3 days. Patient agrees with plan. Please note that this Emergency Department Report was dictated using [employer] technology software, occasionally this can lead to erroneous entry secondary to interpretation by the dictation equipment Laboratory Tests Test 12/12/17 21:38 Urine Color Yellow Urine Appearance Very cloudy Urine pH 7 (4.5-8.0) Urine Specific [place] 1.015 (1.005-1.035) Urine Protein 3+ (NEGATIVE) H Urine Glucose (UA) Negative (NEGATIVE) Urine Ketones 1+ (NEGATIVE) H Urine Occult Blood 5+ (NEGATIVE) H Urine Nitrite Negative (NEGATIVE) Urine Bilirubin 1+ (NEGATIVE) H Urine Ictotest Negative Urine Urobilinogen 4 MG/DL (0.0-1.0) H Urine Leukocyte Esterase 3+ (NEGATIVE) H Urine RBC 20-30 /HPF (0 - 2) H Urine WBC Tntc /HPF (0 - 2) H Urine Squamous Epithelial Cells Few /LPF (NONE/OCC) Urine Bacteria Few /HPF (NONE) Urine HCG, Qualitative Negative (NEGATIVE) Last Vital Signs Date Time Temp Pulse Resp B/P (MAP) Pulse Ox O2 Delivery O2 Flow Rate FiO2 12/12/17 21:28 98.2 95 22 138/78 96 Room Air 98.2 Disposition: HOME, SELF-CARE Condition: Improved Scripts Levofloxacin* (LEVAQUIN*) 750 Mg Tablet 750 MG ORAL DAILY, #3 TAB 0 Refills Prov: Molly Cade M.D. 12/12/17 Molly Cade M.D. Dec 12, 2017 21:51
[2017-12-12] MEDS ORDERED: CIPROFLOXACIN500 M2 ORAL (22:06)
[2017-12-12] MEDS ORDERED: Phenazopyridine 200mg tab ORAL ONE (22:15)
[2017-12-12] MEDS ORDERED: LEVAQUIN750 MG ORAL (22:17)
[2017-12-12 22:30] VITALS: BP 138/78
== END 2017-12-12 22:30 | disposition home or self-care (01) ==
LOC: EMR 21:35
DX: N39.0 Urinary tract infection, site not specified (principal); Z90.710 Acquired absence of both cervix and uterus; Z88.8 Allergy status to other drugs, medicaments and biological substances
CPT/HCPCS: 81003; 81025; 87086; 99283

== ENCOUNTER 2018-03-15 03:32 | Emergency (ER) | payer MEDICAID ==
[~2018-03-15] VITALS: Ht 154.9 cm; Wt 66.7 kg
[~2018-03-15 03:32] MED LIST changes: +LEVAQUIN750 MG ORAL
--- NOTE | 2018-03-15 03:51 | Emergency Room Report ---
History of Present Illness General Chief Complaint: Abdominal Pain Source: Patient Present Illness HPI Is a 42-year-old female with no significant past medical history. She presents with chief complaint abdominal cramping and vomiting. His been ongoing for almost a week. Also with dizziness room spinning and ear pain on the left. Nausea and vomiting. Unable to keep anything down. Started diarrhea tonight. Pain is sharp and crampy in nature. Food makes it worse. Vomiting is nonbloody nonbilious. No fever chills. No cough or congestion. Allergies: Coded Allergies: METOCLOPRAMIDE (Verified Adverse Reaction, Unknown, 03/15/18) shaking PROCHLORPERAZINE (Verified Adverse Reaction, Unknown, 03/15/18) shaking Patient History Past Medical History: see triage record, old chart reviewed Past Surgical History: other Pertinent Family History: none Social History: Denies: smoking Last Menstrual Period: n/a Now: No Immunizations: other Reviewed Nursing Documentation: PMH: Agreed; PSxH: Agreed Nursing Documentation-PMH Past Medical History: No History, Except For Review of Systems Eye: Denies: eye pain, blurred vision ENT: Reports: ear pain; Denies: nose congestion, throat swelling Respiratory: Denies: cough, shortness of breath Cardiovascular: Denies: chest pain, palpitations Gastrointestinal: Reports: abdominal pain, diarrhea, nausea, vomiting Musculoskeletal: Denies: back pain, joint pain Skin: Denies: rash Neurological: Denies: headache, numbness Endocrine: Denies: increased thirst, increased urine Hematologic/Lymphatic: Denies: easy bruising All Other Systems: negative except mentioned in HPI Physical Exam Vital Signs Date Time Temp Pulse Resp B/P (MAP) Pulse Ox O2 Delivery O2 Flow Rate FiO2 03/15/18 03:33 98.8 69 16 112/71 96 Room Air 98.8 vitals normal Sp02 EP Interpretation: reviewed, normal General Appearance: well appearing, no apparent distress, alert Head: normocephalic, atraumatic Eyes: bilateral eye PERRL, bilateral eye EOMI ENT: hearing grossly normal, normal pharynx Neck: full range of motion, supple, no meningismus Respiratory: chest non-tender, lungs clear, normal breath sounds Cardiovascular #1: regular rate, rhythm, no murmur Gastrointestinal: non tender, no mass, no organomegaly, no bruit, non-distended , decreased bowel sounds Musculoskeletal: back normal, gait/station normal, normal range of motion Psychiatric: mood/affect normal Skin: warm/dry Medical Decision Making Diagnostic Impression: Primary Impression: Intractable nausea and vomiting Qualified Codes: R11.2 - Nausea with vomiting, unspecified Additional Impressions: Enteritis UTI (urinary tract infection) Qualified Codes: N30.00 - Acute cystitis without hematuria Drug induced akathisia ER Course Patient presents with abdominal cramping and vomiting. No evidence of obstruction. CT scan showed enteritis. This most likely viral. She received a couple doses of Zofran without much relief. She wanted to try something different site gave her half a dose of Reglan with 50mg of Benadryl IV. She still had severe akathisia. I gave her Ativan which seemed to calm her. Because of continual vomiting, will admit versus transfer for IV hydration and continue antiemetics. She grew out ESBL Escherichia coli that was resistant to Rocephin. I gave her IV Levaquin. Laboratory Tests Test 03/15/18 03:33 White Blood Count 6.7 K/UL (4.8-10.8) Red Blood Count 4.68 M/UL (4.20-5.40) Hemoglobin 14.2 G/DL (12.0-16.0) Hematocrit 41.8 % (37.0-47.0) Mean Corpuscular Volume 89 FL (80-99) Mean Corpuscular Hemoglobin 30.4 PG (27.0-31.0) Mean Corpuscular Hemoglobin Concent 34.1 G/DL (32.0-36.0) Red Cell Distribution Width 11.1 % (11.6-14.8) L Platelet Count 241 K/UL (150-450) Mean Platelet Volume 6.6 FL (6.5-10.1) Neutrophils (%) (Auto) 65.9 % (45.0-75.0) Lymphocytes (%) (Auto) 24.6 % (20.0-45.0) Monocytes (%) (Auto) 7.3 % (1.0-10.0) Eosinophils (%) (Auto) 1.0 % (0.0-3.0) Basophils (%) (Auto) 1.2 % (0.0-2.0) Urine Color Pale yellow Urine Appearance Clear Urine pH 5 (4.5-8.0) Urine Specific [place] 1.010 (1.005-1.035) Urine Protein 3+ (NEGATIVE) H Urine Glucose (UA) Negative (NEGATIVE) Urine Ketones 1+ (NEGATIVE) H Urine Occult Blood 5+ (NEGATIVE) H Urine Nitrite Negative (NEGATIVE) Urine Bilirubin Negative (NEGATIVE) Urine Urobilinogen Normal MG/DL (0.0-1.0) Urine Leukocyte Esterase 2+ (NEGATIVE) H Urine RBC 60-80 /HPF (0 - 2) H Urine WBC 15-20 /HPF (0 - 2) H Urine Squamous Epithelial Cells Moderate /LPF (NONE/OCC) H Urine Bacteria Few /HPF (NONE) Urine HCG, Qualitative Negative (NEGATIVE) Sodium Level 135 MMOL/L (136-145) L Potassium Level 3.9 MMOL/L (3.5-5.1) Chloride Level 105 MMOL/L (98-107) Carbon Dioxide Level 24 MMOL/L (21-32) Anion Gap 6 mmol/L (5-15) Blood Urea Nitrogen 9 mg/dL (7-18) Creatinine 1.1 MG/DL (0.55-1.30) Estimat Glomerular Filtration Rate > 60 mL/min (>60) Glucose Level 138 MG/DL (74-106) H Calcium Level 8.6 MG/DL (8.5-10.1) Total Bilirubin 0.6 MG/DL (0.2-1.0) Aspartate Amino Transf (AST/SGOT) 15 U/L (15-37) Alanine Aminotransferase (ALT/SGPT) 19 U/L (12-78) Alkaline Phosphatase 51 U/L (46-116) Total Protein 7.6 G/DL (6.4-8.2) Albumin 3.5 G/DL (3.4-5.0) Globulin 4.1 g/dL Albumin/Globulin Ratio 0.9 (1.0-2.7) L Lipase 161 U/L (73-393) Lab Results Impression labs unremarkable CT/MRI/US Diagnostic Results CT/MRI/US Diagnostic Results : Imaging Test Ordered: CT abdomen and pelvis Impression Read by radiologist. No bowel obstruction. Appendix normal and retrocecal. Prior cholecystectomy. Nonspecific fluid in the bowel including the colon. Enteritis. Last Vital Signs Date Time Temp Pulse Resp B/P (MAP) Pulse Ox O2 Delivery O2 Flow Rate FiO2 6/30/18 03:33 98.8 69 16 112/71 96 Room Air 98.8 Status: improved Disposition: XFER SHT-TRM HOSP Condition: Stable Referrals: GABRIELA HERNANDEZ (PCP) STACI LANE M.D. Mar 15, 2018 03:51
[2018-03-15] MEDS ORDERED: Ketorolac 30mg Inj IV ONE (04:00)
[2018-03-15 04:06] LABS: APPEARANCE,URINE CLEAR; BASOPHILS % (AUTO) 1.2 % (0.0-2.0); BILIRUBIN, URINE NEGATIVE (NEGATIVE); COLOR,URINE PALE YELLOW; GLUCOSE, URINE (UA) NEGATIVE (NEGATIVE); HEMATOCRIT 41.8 % (37.0-47.0); HEMOGLOBIN 14.2 G/DL (12.0-16.0); KETONES,URINE 1+ (NEGATIVE); LEUKOCYTE ESTERASE ,URINE 2+ (NEGATIVE); LYMPHOCYTES % (AUTO) 24.6 % (20.0-45.0); MEAN CORPUSCULAR VOLUME 89 FL (80-99); MONOCYTES % (AUTO) 7.3 % (1.0-10.0); NEUTROPHILS % (AUTO) 65.9 % (45.0-75.0); NITRITE,URINE NEGATIVE (NEGATIVE); PH,URINE 5 (4.5-8.0); PLATELET COUNT 241 K/UL (150-450); PROTEIN,URINE 3+ (NEGATIVE); RED BLOOD COUNT 4.68 M/UL (4.20-5.40); RED CELL DISTRIBUTION WIDTH 11.1 % (11.6-14.8); UROBILINOGEN,URINE NORMAL MG/DL (0.0-1.0); WHITE BLOOD COUNT 6.7 K/UL (4.8-10.8)
[2018-03-15 04:24] LABS: ANION GAP 6 mmol/L (5-15); BLOOD UREA NITROGEN 9 mg/dL (7-18); CALCIUM 8.6 MG/DL (8.5-10.1); CARBON DIOXIDE 24 MMOL/L (21-32); CHLORIDE 105 MMOL/L (98-107); CREATININE 1.1 MG/DL (0.55-1.30); POTASSIUM 3.9 MMOL/L (3.5-5.1); SODIUM 135 MMOL/L (136-145)
[2018-03-15 04:29] LABS: ALANINE AMINOTRANSFERASE 19 U/L (12-78); ALBUMIN 3.5 G/DL (3.4-5.0); ALBUMIN/GLOBULIN RATIO 0.9 (1.0-2.7); ALKALINE PHOSPHATASE 51 U/L (46-116); ASPARTATE AMINO TRANSFERASE 15 U/L (15-37); BILIRUBIN,TOTAL 0.6 MG/DL (0.2-1.0)
[2018-03-15] MEDS ORDERED: cefTRIAXone 1 GM in NS 55 ML IVPB ONE (05:00)
--- NOTE | 2018-03-15 05:13 | Diagnostic Imaging Report ---
EXAM: CT Abdomen and Pelvis Without Intravenous Contrast CLINICAL HISTORY: ABD PAIN TECHNIQUE: Axial computed tomography images of the abdomen and pelvis without intravenous contrast. CTDI is 13.68 mGy and DLP is 61.96 mGy-cm. One or more of the following dose reduction techniques were used: automated exposure control, adjustment of the mA and/or kV according to patient size, use of iterative reconstruction technique. COMPARISON: Prior ultrasound of the pelvis from July 2017 without report. No other priors are available. FINDINGS: Nonobstructive lower pole left renal stone. No ureteral calculus. No hydronephrosis. No bowel obstruction. Portions of bowel including the right-sided colon underdistended limiting evaluation for wall thickening. No perienteric inflammatory changes. Retrocecal appendix borderline in caliber at about 7 mm. No adjacent inflammatory changes. Appendix likely within normal limits. Nonspecific fluid in bowel including the colon. Enteritis not excluded in the appropriate clinical context. No evidence for acute pancreatitis. Cholecystectomy. Evaluation of viscera limited without contrast. Low- density left renal lesion noted. There are bilateral adnexal cysts measuring up to about 3.4 cm assuming that the cystic changes of left adnexa are separate cysts rather than septated cyst. Small amount of pelvic free fluid. Correlate with ultrasound, as indicated. Suggestion of hysterectomy. IMPRESSION: No bowel obstruction. Portions of bowel underdistended limiting evaluation for wall thickening. No perienteric inflammatory changes. Prominent fluid in bowel. Could represent findings of enteritis in the appropriate clinical context. Appendix borderline in caliber without. No adjacent inflammatory change. Likely within normal limits. Correlate clinically. Bilateral adnexal cysts and small amount of pelvic free fluid, as above. Correlate with pelvic ultrasound, as indicated. Nonobstructive left renal stone. No obstructive uropathy. Other incidentals, as above.
[2018-03-15] MEDS ORDERED: Morphine Sulfate 4mg/ml Inj ONE (05:24)
[2018-03-15] MEDS ORDERED: Morphine Sulfate 4mg/ml Inj IVP ONE (05:30)
[2018-03-15] MEDS ORDERED: Metoclopramide 10mg/2ml Inj ONE (05:41)
[2018-03-15] MEDS ORDERED: DiphenhydrAMINE 50mg/ml Inj ONE (05:41)
[2018-03-15] MEDS ORDERED: LORazepam Inj 2mg/ml 1ml ONE (05:54)
[2018-03-15] MEDS ORDERED: DiphenhydrAMINE 50mg/ml Inj IVP ONE (06:00)
[2018-03-15] MEDS ORDERED: Metoclopramide 10mg/2ml Inj IVP ONE (06:00)
[2018-03-15] MEDS ORDERED: LORazepam Inj 2mg/ml 1ml IV ONE (06:00)
[2018-03-15 06:34] VITALS: BP 95/58
[2018-03-15 08:23] VITALS: BP 98/58
[2018-03-15 09:15] VITALS: BP 98/58
== END 2018-03-15 09:15 | disposition short-term general hospital (02) ==
LOC: EMR 03:49
DX: R11.2 Nausea with vomiting, unspecified (principal); K52.9 Noninfective gastroenteritis and colitis, unspecified; N39.0 Urinary tract infection, site not specified
CPT/HCPCS: 36415; 74176; 80053; 81003; 81025; 83690; 85025; 87086; 96360; 96361; 96374; 96375; 99284; J1200; J1885; J1956; J2270; J2405; J2765

== ENCOUNTER 2018-05-16 13:37 | Emergency (ER) | payer MEDICAID ==
[~2018-05-16] VITALS: Ht 154.9 cm; Wt 60.8 kg
[2018-05-16 13:51] VITALS: BP 111/69
--- NOTE | 2018-05-16 13:57 | Emergency Room Report ---
History of Present Illness General Chief Complaint: Abdominal Pain Source: Patient Present Illness HPI 42-year-old female patient presents ER complaining of abdominal pain for the past few days. Also complaining of frequency and urgency during this time. Reports that she was previously seen by her primary care provider 2 days ago and was told to report the ER for an ultrasound of pain symptoms worsened. States that she was began on Bactrim for possible UTI but is still awaiting lab results to be completed. Denies dysuria, hematuria, or vaginal discharge. Denies considered for STI. Reports one episode of vomiting today, states has been able to tolerate fluids by mouth since that time. Denies fever, chest pain , shortness of breath. Reports history of ovarian cysts that have been removed surgically, last surgery year and a half ago, states that "feels similar to that pain". Also reports history of partial hysterectomy. Reports normal bowel movements, denies blood in stool or diarrhea. States received referral from PCP for OBGYN at visit on Saturday. Allergies: Coded Allergies: METOCLOPRAMIDE (Verified Adverse Reaction, Unknown, 03/15/18) shaking PROCHLORPERAZINE (Verified Adverse Reaction, Unknown, 03/15/18) shaking Patient History Past Medical History: see triage record Last Menstrual Period: Partial hystrectomy Reviewed Nursing Documentation: PMH: Agreed; PSxH: Agreed Nursing Documentation-PMH Past Medical History: No History, Except For Hx Cardiac Problems: No Hx Hypertension: No Hx Pacemaker: No Hx Asthma: No Hx COPD: No Hx Diabetes: No Hx Cancer: No Hx Gastrointestinal Problems: No - partial hystrectomy, ovarian cyst Hx Dialysis: No History Of Psychiatric Problem: No Hx Neurological Problems: No Hx Cerebrovascular Accident: No Hx Seizures: No Review of Systems All Other Systems: negative except mentioned in HPI Physical Exam Vital Signs Date Time Temp Pulse Resp B/P (MAP) Pulse Ox O2 Delivery O2 Flow Rate FiO2 05/16/18 13:42 97.6 61 16 111/69 97 Room Air 97.5 Sp02 EP Interpretation: reviewed, normal General Appearance: well appearing, no apparent distress, alert, GCS 15, non- toxic Head: normocephalic, atraumatic Eyes: bilateral eye normal inspection, bilateral eye PERRL ENT: hearing grossly normal, normal pharynx, no angioedema, normal voice, uvula midline, moist mucus membranes Neck: full range of motion Respiratory: lungs clear, normal breath sounds, no rhonchi, no respiratory distress, no accessory muscle use, no wheezing, speaking full sentences Cardiovascular #1: regular rate, rhythm, no edema Gastrointestinal: soft, no mass, non-distended, no guarding, no rebound, tenderness - suprapubic, other - negative [place], negative obturator Genitourinary: no CVA tenderness, deferred Musculoskeletal: back normal, digits/nails normal, gait/station normal, normal range of motion, non-tender Neurologic: alert, oriented x3, responsive, motor strength/tone normal, sensory intact Skin: no rash Medical Decision Making PA Attestation Dr. José is my supervising Physician whom patient management has been discussed with. Diagnostic Impression: Primary Impression: Ovarian cyst ER Course Pt presents to ED c/o urinary symptoms. DDX considered but are not limited to cystitis, pyelonephritis, STI, vaginitis, , ovarian cysts, torsion, fibroids. 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 Due to patient history and complaints of pain worsening, will order a pelvic ultrasound to rule out underlying pathology. VITAL SIGNS are WNL, patient is afebrile. Ordered UA, zofran, toradol, pelvic US. ER COURSE Reviewed previous patient charts. UA results show negative, do not indicate UTI, will not treat with abx. Informed patient does not need to take Bactrim, no UTI. If concern for STI, followup with STI clinic for testing and treatment. Denies STI concern. Pelvic US shows ovarian cyst, no torsion per nuclear monitoring technician. cyst likely causing pain symptoms. Instructed patient to go to medical records to get copy of ultrasound report to take with her to CIVIL TECHNICIAN specialist. Follow-up with PCP and CIVIL TECHNICIAN. take Tylenol for pain. discuss further pain management with PCP. Provided with pain medication prior to discharge. CURES reviewed. Patient requesting work note. Provided to patient. ER precautions given, return to ER for worsening of symptoms including but not limited to intractable pain, intractable vomiting, chest pain, shortness of breath, hematemesis, blood in stool. DISCHARGE -Rx provided for Tylenol Patient is stable for discharge. Patient resting comfortably, in no acute distress, nontoxic appearing, talking without difficulty. Will provide with patient care instructions and any necessary prescriptions. Patient understands and agrees to treatment plan. Patient encouraged to drink plenty of fluids. Patient to take medication as instructed. Care plan and follow-up instructions provided. Patient questions asked and answered. Reports understanding and agreement to treatment plan. Patient instructed to follow-up with primary care provider in 3 - 5 days. ER precautions given. Patient instructed to return to ER immediately for any new or worsening of symptoms. Including but not limited to fever, abdominal pain , intractable vomiting. - Please note that this Emergency Department Report was dictated using [employer] grinder technology software, occasionally this can lead to erroneous entry secondary to interpretation by the dictation equipment. Labs Test 05/16/18 14:00 Urine Color Pale yellow Urine Appearance Clear Urine pH 6.5 (4.5-8.0) Urine Specific [place] 1.005 (1.005-1.035) Urine Protein Negative (NEGATIVE) Urine Glucose (UA) Negative (NEGATIVE) Urine Ketones Negative (NEGATIVE) Urine Blood Negative (NEGATIVE) Urine Nitrite Negative (NEGATIVE) Urine Bilirubin Negative (NEGATIVE) Urine Urobilinogen Normal MG/DL (0.0-1.0) Urine Leukocyte Esterase Negative (NEGATIVE) CT/MRI/US Diagnostic Results CT/MRI/US Diagnostic Results : Imaging Test Ordered: Pelvic US Impression ovarian cyst no ovarian torsion no free fluid uterus surgically absent Last Vital Signs Date Time Temp Pulse Resp B/P (MAP) Pulse Ox O2 Delivery O2 Flow Rate FiO2 05/16/18 13:51 97.5 16 111/69 97 Room Air 97.5 05/16/18 13:42 61 Disposition: HOME, SELF-CARE Condition: Stable Scripts Acetaminophen* (TYLENOL EXTRA STRENGTH*) 500 Mg Tablet 500 MG ORAL Q8H PRN for Prn Headache/Temp > 101, #30 TAB 0 Refills Prov: Venkat Mclain 05/16/18 Patient Instructions: Ovarian Cyst, [id number] Additional Instructions: Followup with primary care provider in 3 -5 days. Discuss further pain management at that time. Do not need to continue taking Bactrim, UA negative. Followup with consumer marketing specialist. Take medications as directed. Patient questions asked and answered. ER precautions given, patient instructed to return to ER immediately for any new or worsening of symptoms. Venkat Mclain May 16, 2018 13:57
[2018-05-16] MEDS ORDERED: Ketorolac 30mg Inj IM ONE (14:00)
[2018-05-16 14:11] LABS: APPEARANCE,URINE CLEAR; BILIRUBIN, URINE NEGATIVE (NEGATIVE); COLOR,URINE PALE YELLOW; GLUCOSE, URINE (UA) NEGATIVE (NEGATIVE); KETONES,URINE NEGATIVE (NEGATIVE); LEUKOCYTE ESTERASE ,URINE NEGATIVE (NEGATIVE); NITRITE,URINE NEGATIVE (NEGATIVE); PH,URINE 6.5 (4.5-8.0); PROTEIN,URINE NEGATIVE (NEGATIVE); UROBILINOGEN,URINE NORMAL MG/DL (0.0-1.0)
[2018-05-16] MEDS ORDERED: TYLENOL EXTRA500 MG ORAL (15:13)
[2018-05-16] MEDS ORDERED: Norco 5mg/325mg tab ORAL ONE (15:15)
[2018-05-16 15:20] VITALS: BP 125/76
--- NOTE | 2018-05-16 16:32 | Diagnostic Imaging Report ---
Indication:Lower abdominal and pelvic pain Technique: Grayscale and duplex Doppler imaging of the pelvis performed utilizing a transabdominal scan. Comparison: None Findings: There is a large left ovarian cyst demonstrated. This cyst is complex with eccentric retracting clot. Findings consistent with a hemorrhagic cyst. This cyst measures approximately 3.5 x 2.1 cm. There is a second hemorrhagic cyst noted measuring about 1.5 cm. There is Doppler evidence of blood flow within the right ovary. The left ovary appears normal and measures approximately 2.3 x 1.9 x 1.5 cm. The uterus is surgically absent. The cervix is present. There is no free fluid. IMPRESSION: 3.5 x 2.1 cm hemorrhagic right ovarian cyst. Second 1.5 cm hemorrhagic cyst also noted. Recommend follow-up at another phase of the menstrual cycle in 6 weeks. Unremarkable left ovary. Status post supracervical hysterectomy
== END 2018-05-16 15:20 | disposition home or self-care (01) ==
LOC: EMR 14:14
DX: N83.209 Unspecified ovarian cyst, unspecified side (principal)
CPT/HCPCS: 76830; 76856; 81003; 96372; 99284; J1885

== ENCOUNTER 2018-06-27 02:39 | Emergency (ER) | payer MEDICAID ==
[~2018-06-27] VITALS: Ht 154.9 cm; Wt 62.1 kg
[~2018-06-27 02:39] MED LIST changes: +TYLENOL EXTRA500 MG ORAL
[2018-06-27] MEDS ORDERED: Hydromorphone 0.5mg/0.5ml inj IVP ONE (03:15)
[2018-06-27 03:30] VITALS: BP 120/73
[2018-06-27 03:55] LABS: APPEARANCE,URINE SLIGHTLY CLOUDY; BILIRUBIN, URINE NEGATIVE (NEGATIVE); COLOR,URINE YELLOW; GLUCOSE, URINE (UA) NEGATIVE (NEGATIVE); KETONES,URINE NEGATIVE (NEGATIVE); LEUKOCYTE ESTERASE ,URINE 1+ (NEGATIVE); NITRITE,URINE NEGATIVE (NEGATIVE); PH,URINE 5 (4.5-8.0); PROTEIN,URINE NEGATIVE (NEGATIVE); UROBILINOGEN,URINE NORMAL MG/DL (0.0-1.0)
[2018-06-27 04:00] LABS: BASOPHILS % (AUTO) 0.7 % (0.0-2.0); EOSINOPHILS % (AUTO) 3.8 % (0.0-3.0); HEMATOCRIT 40.5 % (37.0-47.0); HEMOGLOBIN 13.7 G/DL (12.0-16.0); LYMPHOCYTES % (AUTO) 50.4 % (20.0-45.0); MEAN CORPUSCULAR VOLUME 89 FL (80-99); NEUTROPHILS % (AUTO) 38.1 % (45.0-75.0); PLATELET COUNT 211 K/UL (150-450); RED BLOOD COUNT 4.57 M/UL (4.20-5.40); RED CELL DISTRIBUTION WIDTH 11.1 % (11.6-14.8); WHITE BLOOD COUNT 5.1 K/UL (4.8-10.8)
[2018-06-27 04:08] LABS: ANION GAP 5 mmol/L (5-15); BLOOD UREA NITROGEN 9 mg/dL (7-18); CALCIUM 8.3 MG/DL (8.5-10.1); CARBON DIOXIDE 28 MMOL/L (21-32); CHLORIDE 104 MMOL/L (98-107); CREATININE 0.8 MG/DL (0.55-1.30); POTASSIUM 4.5 MMOL/L (3.5-5.1); SODIUM 137 MMOL/L (136-145)
[2018-06-27 04:13] LABS: ALANINE AMINOTRANSFERASE 22 U/L (12-78); ALBUMIN 3.3 G/DL (3.4-5.0); ALBUMIN/GLOBULIN RATIO 0.8 (1.0-2.7); ALKALINE PHOSPHATASE 51 U/L (46-116); ASPARTATE AMINO TRANSFERASE 28 U/L (15-37); BILIRUBIN,TOTAL 0.2 MG/DL (0.2-1.0)
--- NOTE | 2018-06-27 04:21 | Emergency Room Report ---
History of Present Illness General Chief Complaint: Abdominal Pain Source: Patient Present Illness HPI The patient presents with several weeks of lower abdominal pain. She's been seen here before and had a workup with ultrasounds. They felt that she had some ovarian pathology that was causing it. They suspected ovarian cyst. She is status post partial hysterectomy. She no longer has periods. She rates the pain 10/10, aching, radiating L leg, constant and worsening. [place] taken at home with minimal relief. For 2 nights pain has gotten severe. When she initially presented, it was radiating down her left leg. That pain was under control however tonight it again and radiated down her left leg and caused her to have difficulty walking. Patient had an ultrasound on May 06 that revealed a 3.5 x 2.5 cm hemorrhagic right ovarian cyst. In addition there is a second 1.5 some meter hemorrhagic cyst. Left ovary was unremarkable. No fevers, dysuria, NVD. No trauma. Some back pain with this. No cough, chest pain. Having difficulty with referral to Ob. Allergies: Coded Allergies: METOCLOPRAMIDE (Verified Adverse Reaction, Unknown, 03/15/18) shaking PROCHLORPERAZINE (Verified Adverse Reaction, Unknown, 03/15/18) shaking Patient History Past Medical History: see triage record Past Surgical History: hysterectomy Social History: Denies: smoking Social History Narrative with sig other Last Menstrual Period: 2006 Now: No - partial hysterectomy Reviewed Nursing Documentation: PMH: Agreed; PSxH: Agreed Nursing Documentation-PMH Past Medical History: No Stated History Hx Cardiac Problems: No Hx Hypertension: No Hx Pacemaker: No Hx Asthma: No Hx COPD: No Hx Diabetes: No Hx Cancer: No Hx Gastrointestinal Problems: No - partial hystrectomy, ovarian cyst Hx Dialysis: No Hx Neurological Problems: No Hx Cerebrovascular Accident: No Hx Seizures: No Review of Systems All Other Systems: negative except mentioned in HPI Physical Exam Vital Signs Date Time Temp Pulse Resp B/P (MAP) Pulse Ox O2 Delivery O2 Flow Rate FiO2 06/27/18 02:53 98.0 56 16 116/77 99 Room Air 98.1 Sp02 EP Interpretation: reviewed, normal General Appearance: well appearing, no apparent distress, GCS 15, other - helped by sig other to ambulate Head: normocephalic Eyes: bilateral eye normal inspection, bilateral eye PERRL - small ENT: moist mucus membranes Neck: supple Respiratory: lungs clear, normal breath sounds Cardiovascular #1: regular rate, rhythm Cardiovascular #2: 2+ radial (R) Gastrointestinal: normal inspection, normal bowel sounds, no mass, non- distended, no guarding, no rebound, tenderness - LLQ Genitourinary: no CVA tenderness Musculoskeletal: back normal, normal range of motion, other - walking with limp Neurologic: alert, oriented x3, motor strength/tone normal, sensory intact, grossly normal Psychiatric: depressed affect Skin: normal inspection, warm/dry Medical Decision Making Diagnostic Impression: Primary Impression: Abdominal pain Qualified Codes: R10.32 - Left lower quadrant pain Additional Impression: ovarian cysts ER Course Patient presents with lower abdominal pain that severe. On for several months however it's worsened at this time. Is not radiating down her left leg. Differential includes diverticulitis, ovarian cyst, urinary tract infection, pyelonephritis amongst others. The patient will be evaluated with labs and her prior ultrasound will be reviewed. Labs with normal white count, no pyuria. The patient states her pain went from an 9 to a 7. She still has significant pain. She is frustrated that OB is not available to her. Her exam is nonsurgical at this time however because of the severity of the pain CT the abdomen and repeat Dilaudid has been ordered. Pain improved and ambulating without limp. CT with bilateral cysts but the size was noted to be decreased from February 2018. Discussed need for follow up with Ob. Requesting more [place] and Zofran. Patient stable for outpatient observation and treatment. Given copy of [facility] report. Laboratory Tests Test 06/27/18 03:40 06/27/18 03:48 Urine Color Yellow Urine Appearance Slightly cloudy Urine pH 5 (4.5-8.0) Urine Specific [place] 1.020 (1.005-1.035) Urine Protein Negative (NEGATIVE) Urine Glucose (UA) Negative (NEGATIVE) Urine Ketones Negative (NEGATIVE) Urine Blood Negative (NEGATIVE) Urine Nitrite Negative (NEGATIVE) Urine Bilirubin Negative (NEGATIVE) Urine Urobilinogen Normal MG/DL (0.0-1.0) Urine Leukocyte Esterase 1+ (NEGATIVE) H Urine RBC 0-2 /HPF (0 - 2) Urine WBC 2-4 /HPF (0 - 2) Urine Squamous Epithelial Cells Moderate /LPF (NONE/OCC) H Urine Bacteria Few /HPF (NONE) White Blood Count 5.1 K/UL (4.8-10.8) Red Blood Count 4.57 M/UL (4.20-5.40) Hemoglobin 13.7 G/DL (12.0-16.0) Hematocrit 40.5 % (37.0-47.0) Mean Corpuscular Volume 89 FL (80-99) Mean Corpuscular Hemoglobin 29.9 PG (27.0-31.0) Mean Corpuscular Hemoglobin Concent 33.7 G/DL (32.0-36.0) Red Cell Distribution Width 11.1 % (11.6-14.8) L Platelet Count 211 K/UL (150-450) Mean Platelet Volume 6.3 FL (6.5-10.1) L Neutrophils (%) (Auto) 38.1 % (45.0-75.0) L Lymphocytes (%) (Auto) 50.4 % (20.0-45.0) H Monocytes (%) (Auto) 7.0 % (1.0-10.0) Eosinophils (%) (Auto) 3.8 % (0.0-3.0) H Basophils (%) (Auto) 0.7 % (0.0-2.0) Prothrombin Time 10.2 SEC (9.30-11.50) Prothrombin Time INR 1.0 (0.9-1.1) PTT 29 SEC (23-33) Sodium Level 137 MMOL/L (136-145) Potassium Level 4.5 MMOL/L (3.5-5.1) Chloride Level 104 MMOL/L (98-107) Carbon Dioxide Level 28 MMOL/L (21-32) Anion Gap 5 mmol/L (5-15) Blood Urea Nitrogen 9 mg/dL (7-18) Creatinine 0.8 MG/DL (0.55-1.30) Estimate Glomerular Filtration Rate > 60 mL/min (>60) Glucose Level 99 MG/DL (74-106) Calcium Level 8.3 MG/DL (8.5-10.1) L Total Bilirubin 0.2 MG/DL (0.2-1.0) Aspartate Amino Transferase (AST) 28 U/L (15-37) Alanine Aminotransferase (ALT) 22 U/L (12-78) Alkaline Phosphatase 51 U/L (46-116) Total Protein 7.3 G/DL (6.4-8.2) Albumin 3.3 G/DL (3.4-5.0) L Globulin 4.0 g/dL Albumin/Globulin Ratio 0.8 (1.0-2.7) L Lipase 196 U/L (73-393) Rhythm Strip Diag. Results EP Interpretation: yes Rhythm: no PVC's, no ectopy, other - Bradycardia CT/MRI/US Diagnostic Results CT/MRI/US Diagnostic Results : Imaging Test Ordered: CT abd pelvis Impression see above. [facility] noted cysts. On final report, this was not listed. Last Vital Signs Date Time Temp Pulse Resp B/P (MAP) Pulse Ox O2 Delivery O2 Flow Rate FiO2 06/27/18 07:08 97.5 16 133/78 100 Room Air 97.5 06/27/18 02:53 56 Status: improved Disposition: HOME, SELF-CARE Condition: Improved Scripts Hydrocodone Bit/Acetaminophen 10-325* (NORCO 10-325*) 1 Each Tablet 1 TAB ORAL Q6H PRN for For Pain, #10 TAB 0 Refills PRN PAIN Prov: Florentin Lopez M.D. 06/27/18 Naproxen* (NAPROXEN*) 500 Mg Tablet. 500 MG ORAL TWICE A DAY, #30 TAB Prov: Florentin Lopez M.D. 06/27/18 Referrals: [facility],REFERRING (PCP) Florentin Lopez M.D. Jun 27, 2018 04:21
[2018-06-27] MEDS ORDERED: Isovue-300 100ml vial INJ PRN (05:15)
[2018-06-27] MEDS ORDERED: HYDROmorphone 1mg/ml Carpuject IVP ONE (05:15)
[2018-06-27 05:30] VITALS: BP 133/78
[2018-06-27] MEDS ORDERED: NORCO 10-325 T1 EACH ORAL (06:55)
[2018-06-27] MEDS ORDERED: NAPROXEN500 M1 ORAL (06:55)
[2018-06-27 07:08] VITALS: BP 133/78
--- NOTE | 2018-06-27 08:47 | Diagnostic Imaging Report ---
Indication: Abdominal pain Technique: Continuous helical transaxial imaging of the abdomen and pelvis was obtained from the lung bases to the pubic symphysis during intravenous contrast administration. Coronal 2-D reformats were also obtained. Study obtained in a Siemens sensation [address] Automatic Exposure Control was utilized. Total Dose length Product (DLP): 495.[address] Dose Index Volume (CTDIvol): 10.24 mGy Comparison: None Findings: Lung bases are clear. Cholecystectomy noted. The biliary ducts are mildly prominent. Correlate clinically. Pancreas, spleen and liver appear normal. There is a left renal cyst demonstrated. Appendix is retrocecal and appears normal. Uterus is absent. Urinary bladder is nondistended. There is no free fluid, free air or evidence of bowel obstruction. IMPRESSION: No acute findings appreciated. Normal appendix Mildly prominent biliary ducts stable compared to last examination and may be normal given prior cholecystectomy. Correlate clinically. Left renal cyst Status post hysterectomy. [facility] has communicated the preliminary results to the Emergency Department. Their findings are largely concordant with this report. The CT scanner at [facility] is accredited by the [employer] and the scans are performed using dose optimization techniques as appropriate to a performed exam including Automatic Exposure control.
== END 2018-06-27 06:55 | disposition home or self-care (01) ==
LOC: EMR 03:36
DX: N83.209 Unspecified ovarian cyst, unspecified side (principal); R10.32 Left lower quadrant pain
CPT/HCPCS: 36415; 74177; 80053; 81003; 83690; 85025; 85610; 85730; 96361; 96365; 96375; 96376; 99284; J1170; J2405; Q9967

== ENCOUNTER 2018-10-09 09:35 | Emergency (ER) | payer MEDICAID ==
[~2018-10-09] VITALS: Ht 154.9 cm; Wt 65.8 kg
[~2018-10-09 09:35] MED LIST changes: +NAPROXEN500 M1 ORAL; +NORCO 10-325 T1 EACH ORAL
[2018-10-09 09:42] VITALS: BP 106/67
--- NOTE | 2018-10-09 09:45 | NUR ---
ED Nurse Note: Patient came into ED from home with her c/o chills, body aches, sorethroat x2 days, reports pain 10/10, especially headache. by the bedside. Patient stated she took nyquil but with no relief.
--- NOTE | 2018-10-09 09:56 | NUR ---
ED Nurse Note: flu swab collected and sent down to lab.
--- NOTE | 2018-10-09 10:19 | Emergency Room Report ---
History of Present Illness General Chief Complaint: Flu Like Symptoms Source: Patient, Medical Record Present Illness HPI This patient states that she has had bodyaches, sore throat, fatigue. She also has had chills. She has had a little bit of a cough but that is been minor. She states she has been using NyQuil but hasn't gotten better. She did not get the seasonal influenza vaccination. She has chest pain or shortness of breath. She denies abdominal pain. She has had a headache but denies blurry vision. She denies neck pain or stiffness. She denies tingling or numbness. She denies weakness. She denies nausea or vomiting. She has no other complaints. Allergies: Coded Allergies: METOCLOPRAMIDE (Verified Adverse Reaction, Unknown, 03/15/18) shaking PROCHLORPERAZINE (Verified Adverse Reaction, Unknown, 03/15/18) shaking Patient History Past Medical History: none, see triage record, psych hx - Anxiety Past Surgical History: hysterectomy Social History: Denies: smoking, alcohol use, drug use Now: No Reviewed Nursing Documentation: PMH: Agreed; PSxH: Agreed Nursing Documentation-PMH Hx Cardiac Problems: No Hx Hypertension: No Hx Pacemaker: No Hx Asthma: No Hx COPD: No Hx Diabetes: No Hx Cancer: No Hx Gastrointestinal Problems: No - partial hystrectomy, ovarian cyst Hx Dialysis: No Hx Neurological Problems: No Hx Cerebrovascular Accident: No Hx Seizures: No Review of Systems All Other Systems: negative except mentioned in HPI Physical Exam Vital Signs Date Time Temp Pulse Resp B/P (MAP) Pulse Ox O2 Delivery O2 Flow Rate FiO2 10/09/18 09:39 98.1 90 18 106/67 96 Room Air Sp02 EP Interpretation: reviewed, normal General Appearance: no apparent distress, alert, GCS 15, non-toxic Head: normocephalic, atraumatic Eyes: bilateral eye normal inspection, bilateral eye PERRL ENT: hearing grossly normal, normal pharynx, no angioedema, normal voice Neck: full range of motion, supple/symm/no masses Respiratory: chest non-tender, lungs clear, normal breath sounds, no respiratory distress, no retraction, no accessory muscle use, speaking full sentences Cardiovascular #1: regular rate, rhythm, no edema Gastrointestinal: normal bowel sounds, non tender, soft, non-distended, no guarding, no rebound Rectal: deferred Musculoskeletal: back normal, gait/station normal, normal range of motion, non- tender, calf tenderness Neurologic: alert, oriented x3, responsive, motor strength/tone normal, sensory intact, speech normal Psychiatric: judgement/insight normal, memory normal, mood/affect normal, no suicidal/homicidal ideation Skin: normal color, no rash, warm/dry, well hydrated Medical Decision Making Diagnostic Impression: Primary Impression: Viral syndrome ER Course This patient has a clinical presentation consistent with viral syndrome. Symptoms are nonspecific. There are no red flags on physical exam that would make me concerned for serious illness. This includes no evidence of meningitis , intra-abdominal process that would make me concerned for appendicitis or diverticulitis or other surgical or emergency etiology. Overall, this patient' s presentation is benign and the patient is nontoxic. There is no evidence of an emergency medical condition. The patient is given close return precautions and followup instructions. Laboratory Tests Test 10/09/18 10:14 Urine Color Pale yellow Urine Appearance Slightly cloudy Urine pH 7 (4.5-8.0) Urine Specific [place] 1.010 (1.005-1.035) Urine Protein Negative (NEGATIVE) Urine Glucose (UA) Negative (NEGATIVE) Urine Ketones Negative (NEGATIVE) Urine Blood Negative (NEGATIVE) Urine Nitrite Negative (NEGATIVE) Urine Bilirubin Negative (NEGATIVE) Urine Urobilinogen Normal MG/DL (0.0-1.0) Urine Leukocyte Esterase Negative (NEGATIVE) Urine RBC 0-2 /HPF (0 - 2) Urine WBC 2-4 /HPF (0 - 2) Urine Squamous Epithelial Cells Many /LPF (NONE/OCC) H Urine Bacteria Few /HPF (NONE) Microbiology Date/Time Source Procedure Growth Status 10/09/18 09:53 Nasal Nares Influenza Types A,B Antigen (VALERIANO) - Final Complete Last Vital Signs Date Time Temp Pulse Resp B/P (MAP) Pulse Ox O2 Delivery O2 Flow Rate FiO2 10/09/18 09:44 90 18 Room Air 10/09/18 09:42 98.1 106/67 96 Disposition: HOME, SELF-CARE Condition: Stable GialYue suggsSol CAMARA Oct 09, 2018 10:19
[2018-10-09 10:43] LABS: APPEARANCE,URINE SLIGHTLY CLOUDY; BILIRUBIN, URINE NEGATIVE (NEGATIVE); COLOR,URINE PALE YELLOW; GLUCOSE, URINE (UA) NEGATIVE (NEGATIVE); KETONES,URINE NEGATIVE (NEGATIVE); LEUKOCYTE ESTERASE ,URINE NEGATIVE (NEGATIVE); NITRITE,URINE NEGATIVE (NEGATIVE); PH,URINE 7 (4.5-8.0); PROTEIN,URINE NEGATIVE (NEGATIVE); UROBILINOGEN,URINE NORMAL MG/DL (0.0-1.0)
[2018-10-09 11:54] VITALS: BP 91/55
[2018-10-09 12:02] VITALS: BP 91/55
--- NOTE | 2018-10-09 12:40 | NUR ---
ED Nurse Note: PT is medically cleared per ERMD order. pt is stable for discharge. pt status condition and vital signs are reported to ERMD prior to DC. pt vital signs are stable. pt is alert and oriented times 4. pt left with all belongings, including DC instructions and papers. pt was able to teach back and understands DC notes and prescription. pt is instructed to follow up with primary MD as soon as possible, pt is instructed to return to ER if any variance in condition. ID band removed. pt is able to ambulate. pt is alert and oriented times 4. pt is stable for DC as per ERMD orders.
== END 2018-10-09 12:00 | disposition home or self-care (01) ==
LOC: EMR 10:30
DX: J11.1 Influenza due to unidentified influenza virus with other respiratory manifestations (principal); Z88.8 Allergy status to other drugs, medicaments and biological substances
CPT/HCPCS: 81003; 86710; 96360; 99284

== ENCOUNTER 2018-10-31 06:08 | Emergency (ER) | payer MEDICAID ==
[~2018-10-31] VITALS: Ht 154.9 cm; Wt 65.8 kg
[2018-10-31 06:17] VITALS: BP 116/81
--- NOTE | 2018-10-31 06:17 | NUR ---
ED Nurse Note: Patient walk in c/o non radiating sternal chest pain since 2100 last night. Patient reports pain as sharp and pressure. Patient reports N/V and weakness. pt stated she has 9/10 pain on the sternum, denies cough. ermd on bedside. will continue to monitor.
[2018-10-31] MEDS ORDERED: Acetaminophen 500mg (ES) tab ORAL ONE (06:45)
[2018-10-31 07:01] LABS: APPEARANCE,URINE CLEAR; BILIRUBIN, URINE NEGATIVE (NEGATIVE); COLOR,URINE PALE YELLOW; GLUCOSE, URINE (UA) NEGATIVE (NEGATIVE); KETONES,URINE NEGATIVE (NEGATIVE); LEUKOCYTE ESTERASE ,URINE NEGATIVE (NEGATIVE); NITRITE,URINE NEGATIVE (NEGATIVE); PH,URINE 7 (4.5-8.0); PROTEIN,URINE NEGATIVE (NEGATIVE); UROBILINOGEN,URINE NORMAL MG/DL (0.0-1.0)
[2018-10-31 07:10] LABS: ANION GAP 9 mmol/L (5-15); BLOOD UREA NITROGEN 12 mg/dL (7-18); CALCIUM 8.8 MG/DL (8.5-10.1); CARBON DIOXIDE 27 MMOL/L (21-32); CHLORIDE 103 MMOL/L (98-107); CREATININE 0.9 MG/DL (0.55-1.30); SODIUM 139 MMOL/L (136-145)
[2018-10-31 07:25] LABS: ALANINE AMINOTRANSFERASE 25 U/L (12-78); ALBUMIN 3.5 G/DL (3.4-5.0); ALBUMIN/GLOBULIN RATIO 0.9 (1.0-2.7); ALKALINE PHOSPHATASE 74 U/L (46-116); ASPARTATE AMINO TRANSFERASE 19 U/L (15-37); BILIRUBIN,TOTAL 0.2 MG/DL (0.2-1.0); CKMB 0.9 NG/ML (0.0-3.6); CREATINE KINASE 131 U/L (26-308)
--- NOTE | 2018-10-31 07:30 | NUR ---
ED Nurse Note: REPORT RECEIVED FROM HAVEN SHAH.
[2018-10-31 07:35] VITALS: BP 112/69
[2018-10-31] MEDS ORDERED: Ketorolac 30mg Inj IV ONE (07:45)
[2018-10-31 07:53] LABS: BASOPHILS % (AUTO) 1.4 % (0.0-2.0); EOSINOPHILS % (AUTO) 2.4 % (0.0-3.0); HEMOGLOBIN 13.7 G/DL (12.0-16.0); LYMPHOCYTES % (AUTO) 30.5 % (20.0-45.0); MEAN CORPUSCULAR VOLUME 89 FL (80-99); MONOCYTES % (AUTO) 7.7 % (1.0-10.0); PLATELET COUNT 235 K/UL (150-450); RED BLOOD COUNT 4.48 M/UL (4.20-5.40); RED CELL DISTRIBUTION WIDTH 11.5 % (11.6-14.8); WHITE BLOOD COUNT 6.2 K/UL (4.8-10.8)
[2018-10-31 07:55] VITALS: BP 114/72
[2018-10-31] MEDS ORDERED: ROBAXIN-750750 MG PO (08:04)
[2018-10-31] MEDS ORDERED: IBUPROFEN600 MG ORAL (08:04)
--- NOTE | 2018-10-31 08:09 | NUR ---
ED Nurse Note: PT LAYING PEACEFULLY IN BED IN NAD. AOX4. PRESCRIPTIONS AND DISCHARGE PAPERWORK EXPLAINED TO PT. PT VERBALIZES UNDERSTANDING AND ALL QUESTIONS ANSWERED. PRESCRIPTIONS AND DISCHARGE PAPERWORK GIVEN TO PT, IV AND ID WRISTBAND REMOVED. PT WALKED OUT OF ER WITH STEADY GAIT AND ALL BELONGINGS.
--- NOTE | 2018-10-31 08:23 | Emergency Room Report ---
History of Present Illness General Chief Complaint: Chest Pain Source: Patient Present Illness HPI 43-year-old female presents ED for evaluation. Patient states she's been having chest pain since last night. Sudden onset. Midsternal, 8 out of 10, sharp, nonradiating. Worse with deep breaths. Denies fevers or chills. Denies cough. Denies shortness of breath. Denies smoking or drug use. No other aggravating relieving factors. Denies any other associated symptoms Allergies: Coded Allergies: METOCLOPRAMIDE (Verified Adverse Reaction, Unknown, 03/15/18) shaking PROCHLORPERAZINE (Verified Adverse Reaction, Unknown, 03/15/18) shaking Patient History Past Medical History: none Past Surgical History: none Pertinent Family History: none Social History: Denies: smoking, alcohol use, drug use Last Menstrual Period: hysterectomy Now: No Immunizations: UTD Reviewed Nursing Documentation: PMH: Agreed; PSxH: Agreed Nursing Documentation-PMH Past Medical History: No History, Except For Hx Cardiac Problems: No Hx Hypertension: No Hx Pacemaker: No Hx Asthma: No Hx COPD: No Hx Diabetes: No Hx Cancer: No Hx Gastrointestinal Problems: No - partial hystrectomy, ovarian cyst Hx Dialysis: No Hx Neurological Problems: No Hx Cerebrovascular Accident: No Hx Seizures: No Review of Systems All Other Systems: negative except mentioned in HPI Physical Exam Vital Signs Date Time Temp Pulse Resp B/P (MAP) Pulse Ox O2 Delivery O2 Flow Rate FiO2 10/31/18 06:12 98.1 81 16 116/81 100 Room Air Sp02 EP Interpretation: reviewed, normal General Appearance: no apparent distress, alert, GCS 15, non-toxic Head: normocephalic, atraumatic Eyes: bilateral eye normal inspection, bilateral eye PERRL ENT: hearing grossly normal, normal pharynx, no angioedema, normal voice Neck: full range of motion, supple/symm/no masses Respiratory: lungs clear, normal breath sounds, speaking full sentences, other - reproducible sternal chest pain Cardiovascular #1: regular rate, rhythm, no edema Cardiovascular #2: 2+ carotid (R), 2+ carotid (L), 2+ radial (R), 2+ radial (L) , 2+ dorsalis pedis (R), 2+ dorsalis pedis (L) Gastrointestinal: normal bowel sounds, non tender, soft, non-distended, no guarding, no rebound Rectal: deferred Genitourinary: normal inspection, no CVA tenderness Musculoskeletal: back normal, gait/station normal, normal range of motion, non- tender Neurologic: alert, oriented x3, responsive, motor strength/tone normal, sensory intact, speech normal Psychiatric: judgement/insight normal, memory normal, mood/affect normal, no suicidal/homicidal ideation Reflexes: 3+ bicep (R), 3+ bicep (L), 3+ tricep (R), 3+ tricep (L), 3+ knee (R) , 3+ knee (L) Skin: normal color, no rash, warm/dry, well hydrated Lymphatic: no adenopathy Medical Decision Making Diagnostic Impression: Primary Impression: Chest wall pain ER Course Hospital Course 43-year-old female presents ED complaining of reproducible chest wall pain Differential diagnoses include: Rib fracture, UT/unstable angina, contusion, muscle strain Clinical course Patient placed on stretcher. After initial history and physical I ordered labs , EKG, chest x-ray, tylenol. labs reviewed- all electrolytes normal, troponins negative, no leukocytosis, hemoglobin/hematocrit stable EKG - NSR, no acute ischemic changes interpreted by me Chest x-ray-no cardiomegaly, no rib fracture, no pneumothorax, no acute process clinical findings consistent with muscle strain/costochondritis. Reassurance given. Patient given Toradol for pain. Upon reassessment patient states pain is improved. Patient has no cardiac risk factors. Safe for discharge and close outpatient follow-up. States she has a PMD I. I feel this is a highly complex case requiring extensive working including EKG/Rhythm strip, Xray/CT/US, Blood/urine lab work, repeat exams while in ED, and administration of strong opiates/narcotics for pain control, admission to hospital or close patient follow up. Diagnosis - chest wall pain Stable and discharged to home with prescription for Motrin, robaxin. Instructed to followup with PMD. Return to ED if symptoms recur or worsen Labs Test 10/31/18 06:50 White Blood Count 6.2 K/UL (4.8-10.8) Red Blood Count 4.48 M/UL (4.20-5.40) Hemoglobin 13.7 G/DL (12.0-16.0) Hematocrit 40.0 % (37.0-47.0) Mean Corpuscular Volume 89 FL (80-99) Mean Corpuscular Hemoglobin 30.6 PG (27.0-31.0) Mean Corpuscular Hemoglobin Concent 34.3 G/DL (32.0-36.0) Red Cell Distribution Width 11.5 % (11.6-14.8) Platelet Count 235 K/UL (150-450) Mean Platelet Volume 6.3 FL (6.5-10.1) Neutrophils (%) (Auto) 58.0 % (45.0-75.0) Lymphocytes (%) (Auto) 30.5 % (20.0-45.0) Monocytes (%) (Auto) 7.7 % (1.0-10.0) Eosinophils (%) (Auto) 2.4 % (0.0-3.0) Basophils (%) (Auto) 1.4 % (0.0-2.0) Urine Color Pale yellow Urine Appearance Clear Urine pH 7 (4.5-8.0) Urine Specific [place] 1.010 (1.005-1.035) Urine Protein Negative (NEGATIVE) Urine Glucose (UA) Negative (NEGATIVE) Urine Ketones Negative (NEGATIVE) Urine Blood Negative (NEGATIVE) Urine Nitrite Negative (NEGATIVE) Urine Bilirubin Negative (NEGATIVE) Urine Urobilinogen Normal MG/DL (0.0-1.0) Urine Leukocyte Esterase Negative (NEGATIVE) Urine HCG, Qualitative Negative (NEGATIVE) Sodium Level 139 MMOL/L (136-145) Potassium Level 4.0 MMOL/L (3.5-5.1) Chloride Level 103 MMOL/L (98-107) Carbon Dioxide Level 27 MMOL/L (21-32) Anion Gap 9 mmol/L (5-15) Blood Urea Nitrogen 12 mg/dL (7-18) Creatinine 0.9 MG/DL (0.55-1.30) Estimat Glomerular Filtration Rate > 60 mL/min (>60) Glucose Level 77 MG/DL (74-106) Calcium Level 8.8 MG/DL (8.5-10.1) Total Bilirubin 0.2 MG/DL (0.2-1.0) Aspartate Amino Transf (AST/SGOT) 19 U/L (15-37) Alanine Aminotransferase (ALT/SGPT) 25 U/L (12-78) Alkaline Phosphatase 74 U/L (46-116) Total Creatine Kinase 131 U/L (26-308) Creatine Kinase MB 0.9 NG/ML (0.0-3.6) Creatine Kinase MB Relative Index 0.6 Troponin I 0.004 ng/mL (0.000-0.056) Pro-B-Type Natriuretic Peptide 72 pg/mL (0-125) Total Protein 7.5 G/DL (6.4-8.2) Albumin 3.5 G/DL (3.4-5.0) Globulin 4.0 g/dL Albumin/Globulin Ratio 0.9 (1.0-2.7) Urine Opiates Screen Negative (NEGATIVE) Urine Barbiturates Screen Negative (NEGATIVE) Phencyclidine (PCP) Screen Negative (NEGATIVE) Urine Amphetamines Screen Negative (NEGATIVE) Urine Benzodiazepines Screen Negative (NEGATIVE) Urine Cocaine Screen Negative (NEGATIVE) Urine Marijuana (THC) Screen Negative (NEGATIVE) EKG Diagnostic Results Rate: normal Rhythm: NSR ST Segments: no acute changes ASA given to the pt in ED: No Rhythm Strip Diag. Results EP Interpretation: yes Rhythm: NSR, no PVC's, no ectopy Chest X-Ray Diagnostic Results Chest X-Ray Diagnostic Results : Chest X-Ray Ordered: Yes # of Views/Limited/Complete: 1 View Indication: Chest Pain EP Interpretation: Yes Interpretation: no consolidation, no effusion, no pneumothorax, no acute cardiopulmonary disease Impression: No acute disease Electronically Signed by: Electronically signed by Fernando José MD Last Vital Signs Date Time Temp Pulse Resp B/P (MAP) Pulse Ox O2 Delivery O2 Flow Rate FiO2 10/31/18 07:55 98.4 72 17 114/72 100 Room Air Status: improved Disposition: HOME, SELF-CARE Condition: Stable Scripts Methocarbamol* (ROBAXIN-750*) 750 Mg Tablet 750 MG PO TID, #21 TAB 0 Refills Prov: Fernando José MD 10/31/18 Ibuprofen* (MOTRIN*) 600 Mg Tablet 600 MG ORAL Q8H PRN for For Pain, #30 TAB 0 Refills Prov: Fernando José MD 10/31/18 Departure Forms: Return to Work Return to Work Date: Nov 01, 2018 Work Restrictions: No Heavy Lifting Patient Instructions: Chest Wall Pain, [id number] Fernando José MD Oct 31, 2018 08:23
--- NOTE | 2018-10-31 10:05 | Diagnostic Imaging Report ---
Indication: Chest pain Technique: One view of the chest Comparison: 06/11/2016 Findings: Patient's chin obscures the upper mediastinum and right lung apex. No definite acute infiltrates, effusions, or congestion. Normal heart size. Impression: Somewhat limited exam, as described. No definite acute process
--- NOTE | 2018-10-31 15:01 | Cardiology Report ---
APPROVED REPORT EKG Measurement Heart [id number] Normal sinus rhythm Rightward axis Borderline ECG
== END 2018-10-31 08:09 | disposition home or self-care (01) ==
LOC: EMR 06:42
DX: R07.89 Other chest pain (principal); Z88.8 Allergy status to other drugs, medicaments and biological substances
CPT/HCPCS: 36415; 71045; 80053; 80307; 81003; 81025; 82550; 82553; 83880; 84484; 85025; 93005; 96374; 96375; 99284; J1885; J2405; J7040

== ENCOUNTER 2018-11-08 00:36 | Emergency (ER) | payer MEDICAID ==
[~2018-11-08] VITALS: Ht 154.9 cm; Wt 65.8 kg
[2018-11-08] MEDS ORDERED: IBUPROFEN600 MG ORAL (00:59)
[2018-11-08] MEDS ORDERED: Norco 5mg/325mg tab ORAL ONE (01:00)
--- NOTE | 2018-11-08 01:00 | Emergency Room Report ---
History of Present Illness General Chief Complaint: Head Injury Source: Patient Present Illness HPI Is a 43-year-old female with no significant past medical history. She presents with chief complaint of head injury and dizziness. Onset was 3 days ago. She was walking down the steps and missed a step. She actually stepped on the dustpan and slipped and fell hitting the back of her head on the stairs. She did not pass out. Since then she complaining of headache. Back her head. Taking Tylenol without relief. Pain is 8 out of 10. Worse with movement. No focal deficit. No nausea no vomiting but no fever chills. Allergies: Coded Allergies: METOCLOPRAMIDE (Verified Adverse Reaction, Unknown, 03/15/18) shaking PROCHLORPERAZINE (Verified Adverse Reaction, Unknown, 03/15/18) shaking Patient History Past Medical History: see triage record, old chart reviewed Past Surgical History: none, other Pertinent Family History: none Social History: Denies: smoking Last Menstrual Period: partial hysterectomy Now: No Immunizations: other Reviewed Nursing Documentation: PMH: Agreed; PSxH: Agreed Nursing Documentation-PMH Past Medical History: No History, Except For Hx Cardiac Problems: No Hx Hypertension: No Hx Pacemaker: No Hx Asthma: No Hx COPD: No Hx Diabetes: No Hx Cancer: No Hx Gastrointestinal Problems: No - partial hystrectomy, ovarian cyst Hx Dialysis: No Hx Neurological Problems: No Hx Cerebrovascular Accident: No Hx Seizures: No Review of Systems Eye: Denies: eye pain, blurred vision ENT: Denies: ear pain, nose congestion, throat swelling Respiratory: Denies: cough, shortness of breath Cardiovascular: Denies: chest pain, palpitations Gastrointestinal: Denies: abdominal pain, diarrhea, nausea, vomiting Musculoskeletal: Denies: back pain, joint pain Skin: Denies: rash Neurological: Reports: headache; Denies: numbness Endocrine: Denies: increased thirst, increased urine Hematologic/Lymphatic: Denies: easy bruising All Other Systems: negative except mentioned in HPI Physical Exam Vital Signs Date Time Temp Pulse Resp B/P (MAP) Pulse Ox O2 Delivery O2 Flow Rate FiO2 11/08/18 00:39 97.9 69 16 125/79 100 Room Air vitals normal Sp02 EP Interpretation: reviewed, normal General Appearance: well appearing, no apparent distress, alert Head: normocephalic, atraumatic - No deformity. Tenderness to the occipital area Eyes: bilateral eye PERRL, bilateral eye EOMI ENT: hearing grossly normal, normal pharynx Neck: full range of motion, supple, no meningismus Respiratory: chest non-tender, lungs clear, normal breath sounds Cardiovascular #1: regular rate, rhythm, no murmur Gastrointestinal: normal bowel sounds, non tender, no mass, no organomegaly, no bruit, non-distended Musculoskeletal: back normal, gait/station normal, normal range of motion Neurologic: alert, oriented x3 Psychiatric: mood/affect normal Skin: warm/dry Medical Decision Making Diagnostic Impression: Primary Impression: Acute head injury Qualified Codes: S09.90XA - Unspecified injury of head, initial encounter Additional Impression: Concussion Qualified Codes: S06.0X0A - Concussion without loss of consciousness, initial encounter ER Course Patient with acute head injury and postconcussive syndrome. No evidence of bleed or skull fracture. We'll discharge home. Last Vital Signs Date Time Temp Pulse Resp B/P (MAP) Pulse Ox O2 Delivery O2 Flow Rate FiO2 11/08/18 00:39 97.9 69 16 125/79 100 Room Air Status: improved Disposition: HOME, SELF-CARE Condition: Stable Scripts Ibuprofen* (MOTRIN*) 600 Mg Tablet 600 MG ORAL THREE TIMES A DAY, #30 TAB 0 Refills Prov: Smooth Huerta MD 11/08/18 Additional Instructions: Follow-up with your doctor in 7 days. Return if worse. Smooth Huerta MD Nov 08, 2018 01:00
[2018-11-08 01:02] VITALS: BP 125/79
[2018-11-08 01:25] VITALS: BP 125/79
--- NOTE | 2018-11-08 01:28 | Diagnostic Imaging Report ---
EXAM: CT Head Without Intravenous Contrast CLINICAL HISTORY: TRAUMA TECHNIQUE: Axial computed tomography images of the head/brain without intravenous contrast. CTDI is 0.15, 70.38 mGy and DLP is 1376 mGy-cm. One or more of the following dose reduction techniques were used: automated exposure control, adjustment of the mA and/or kV according to patient size, use of iterative reconstruction technique. COMPARISON: CT head dated 09/07/2017 FINDINGS: Brain: No acute infarct, hemorrhage, mass or edema. No significant white matter disease. Ventricles: Unremarkable. No ventriculomegaly. Bones/joints: No acute osseous normality. Soft tissues: Unremarkable. Sinuses: Minimal mucosal thickening in the paranasal sinuses. Mastoid air cells: Unremarkable as visualized. No mastoid effusion. IMPRESSION: No acute findings.
== END 2018-11-08 01:25 | disposition home or self-care (01) ==
LOC: EMR 01:10
DX: S09.90XA Unspecified injury of head, initial encounter (principal); S06.0X0A Concussion without loss of consciousness, initial encounter; W18.31XA Fall on same level due to stepping on an object, initial encounter; Y92.009 Unspecified place in unspecified non-institutional (private) residence as the place of occurrence of the external cause; Z88.8 Allergy status to other drugs, medicaments and biological substances
CPT/HCPCS: 70450; 99284

== ENCOUNTER 2018-11-17 15:27 | Emergency (ER) | payer SELFPAY ==
[~2018-11-17] VITALS: Ht 154.9 cm; Wt 64.9 kg
[2018-11-17 16:06] VITALS: BP 114/75
--- NOTE | 2018-11-17 16:08 | NUR ---
ED Nurse Note: PT. AAOX4. AMBULATED IN TO ER DUE TO HEADACHE X2 WEEKS S/P FALL. DC FROM [facility] [place] 2 WEEKS AGO. ALSO C/O N/V
--- NOTE | 2018-11-17 16:55 | Diagnostic Imaging Report ---
Indication: Headache Technique: Continuous helical CT scanning of the head was performed without intravenous contrast material. Axial and coronal 5 mm sections were generated. Radiation dose was minimized using automated exposure control Dose: Total Dose Length Product - DLP 1376.[address] Dose Index - CTDIvol(s) 70.38 mGy. Comparison: 11/08/2018 Findings: The ventricular system is normal in size and configuration. There is no shift of midline structures. No abnormal extra-axial fluid collections are noted. There is no evidence of intracerebral bleeding. No other abnormal high or low density areas are noted within the brain. Normal white differentiation. Visualized orbits and sinuses are unremarkable. The mastoids are clear. No significant interim change Impression: Normal CT scan of the head without contrast material. The CT scanner at [facility] is accredited by the [employer] and the scans are performed using protocols designed to limit radiation exposure to as low as reasonably achievable to attain images of sufficient resolution adequate for diagnostic evaluation.
[2018-11-17] MEDS ORDERED: FIORICET1 EA ORAL (17:18)
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
[2018-11-17 17:27] VITALS: BP 120/68
--- NOTE | 2018-11-17 17:28 | NUR ---
ED Nurse Note: PT. AAOX4. AMBULATORY LEFT WITH STEADY GAIT. PT EDUCATION DONE REGARDING D/C PAPERS AND PRESCRIPTIONS. PT. VERBALIZED THE UNDERSTANDING OF THE TEACHING. ID [place] REMOVED. LEFT WITH ALL HER BELONGINGS.
== END 2018-11-17 18:45 | disposition home or self-care (01) ==
LOC: EMR 16:08
DX: R51 Headache (principal); Z88.8 Allergy status to other drugs, medicaments and biological substances
CPT/HCPCS: 70450; 99284

== ENCOUNTER 2019-07-30 22:51 | Emergency (ER) | payer SELFPAY ==
[~2019-07-30] VITALS: Ht 154.9 cm; Wt 66.7 kg
[~2019-07-30 22:51] MED LIST changes: +FIORICET1 EA ORAL
--- NOTE | 2019-07-30 23:15 | NUR ---
ED Nurse Note: Recieved pt from home, here with c/o back pain due to kidney stones, pt states was diagnosed about 6 months ago and waiting for surgery, pt denies cp, no sob or labored breathing noted, is ambulatory, denies any other discomforts or distress, pt gowned and placed on monitoring, will resume care as ordered by md.
[2019-07-30 23:38] LABS: APPEARANCE,URINE CLEAR; BILIRUBIN, URINE NEGATIVE (NEGATIVE); COLOR,URINE PALE YELLOW; GLUCOSE, URINE (UA) NEGATIVE (NEGATIVE); KETONES,URINE NEGATIVE (NEGATIVE); LEUKOCYTE ESTERASE ,URINE NEGATIVE (NEGATIVE); NITRITE,URINE NEGATIVE (NEGATIVE); PH,URINE 7 (4.5-8.0); PROTEIN,URINE NEGATIVE (NEGATIVE); UROBILINOGEN,URINE NORMAL MG/DL (0.0-1.0)
[2019-07-30] MEDS ORDERED: Ketorolac 30mg Inj IV ONE (23:45)
[2019-07-30 23:48] LABS: BASOPHILS % (AUTO) 1.4 % (0.0-2.0); EOSINOPHILS % (AUTO) 1.1 % (0.0-3.0); HEMATOCRIT 39.7 % (37.0-47.0); HEMOGLOBIN 13.7 G/DL (12.0-16.0); LYMPHOCYTES % (AUTO) 43.9 % (20.0-45.0); MEAN CORPUSCULAR VOLUME 91 FL (80-99); MONOCYTES % (AUTO) 3.5 % (1.0-10.0); NEUTROPHILS % (AUTO) 50.1 % (45.0-75.0); PLATELET COUNT 298 K/UL (150-450); RED BLOOD COUNT 4.35 M/UL (4.20-5.40); RED CELL DISTRIBUTION WIDTH 11.8 % (11.6-14.8); WHITE BLOOD COUNT 8.8 K/UL (4.8-10.8)
[2019-07-30 23:58] LABS: ANION GAP 15 mmol/L (5-15); BLOOD UREA NITROGEN 7 mg/dL (7-18); CALCIUM 8.2 MG/DL (8.5-10.1); CARBON DIOXIDE 24 MMOL/L (21-32); CHLORIDE 104 MMOL/L (98-107); CREATININE 0.8 MG/DL (0.55-1.30); POTASSIUM 3.3 MMOL/L (3.5-5.1); SODIUM 142 MMOL/L (136-145)
[2019-07-31] VITALS: BP 110/70
--- NOTE | 2019-07-31 00:25 | Diagnostic Imaging Report ---
Indication: Abdominal pain Technique: Continuous helical transaxial imaging of the abdomen and pelvis was obtained from the lung bases to the pubic symphysis. No intravenous contrast was administered. Coronal 2-D reformats were also obtained. Automatic Exposure Control was utilized. Total Dose length Product (DLP): 906.[address] Dose Index Volume (CTDIvol): 18.3 mGy Comparison: 03/15/2018 Findings: Lung bases are clear. There is a tiny nonobstructive stone within the lower pole the left kidney. There is no hydronephrosis. Gallbladder is absent. Solid organs not evaluated adequately on this study. The appendix is normal. No evidence of bowel obstruction. Uterus noted. Few diverticula demonstrated in the colon. No evidence of diverticulitis. Urinary bladder is nondistended. IMPRESSION: Tiny nonobstructive stone in the left kidney. Normal appendix. Status post cholecystectomy. [facility] has communicated the preliminary results to the Emergency Department. Their findings are largely concordant with this report. The CT scanner at [facility] is accredited by the [employer] and the scans are performed using dose optimization techniques as appropriate to a performed exam including Automatic Exposure control.
[2019-07-31] MEDS ORDERED: IBUPROFEN600 MG ORAL (00:46)
[2019-07-31] MEDS ORDERED: HYDROCODON-ACE1 EA15 ORAL (00:46)
--- NOTE | 2019-07-31 00:46 | Emergency Room Report ---
History of Present Illness General Chief Complaint: Lower Back Pain or Injury Source: Patient Present Illness HPI Is a 43-year-old female with a history of abdominal pain. She has a history of kidney stone also. She presents with chief complaint of left lower quadrant pain that is been ongoing for 2 weeks. She has some pain when she urinates. No discharge or hematuria. She said that she had work-up done at the beginning of the year with ultrasound, CT scan, special dye study and was told that she needs surgery for her kidney stone. Pain is sharp in nature. Worse with urination. Better with rest. Pain is 8 out of 10. Denies any other complaint Allergies: Coded Allergies: METOCLOPRAMIDE (Verified Adverse Reaction, Unknown, 11/17/18) shaking PROCHLORPERAZINE (Verified Adverse Reaction, Unknown, 11/17/18) shaking Patient History Past Medical History: see triage record, old chart reviewed Past Surgical History: aris, hysterectomy Pertinent Family History: none Social History: Denies: smoking Now: No Immunizations: other Reviewed Nursing Documentation: PMH: Agreed; PSxH: Agreed Nursing Documentation-PMH Hx Cardiac Problems: No Hx Hypertension: No Hx Pacemaker: No Hx Asthma: No Hx COPD: No Hx Diabetes: No Hx Cancer: No Hx Gastrointestinal Problems: No - partial hystrectomy, ovarian cyst Hx Neurological Problems: No Hx Cerebrovascular Accident: No Hx Seizures: No Review of Systems Eye: Denies: eye pain, blurred vision ENT: Denies: ear pain, nose congestion, throat swelling Respiratory: Denies: cough, shortness of breath Cardiovascular: Denies: chest pain, palpitations Gastrointestinal: Reports: abdominal pain; Denies: diarrhea, nausea, vomiting Musculoskeletal: Denies: back pain, joint pain Skin: Denies: rash Neurological: Denies: headache, numbness Endocrine: Denies: increased thirst, increased urine Hematologic/Lymphatic: Denies: easy bruising All Other Systems: negative except mentioned in HPI Physical Exam Vital Signs Date Time Temp Pulse Resp B/P (MAP) Pulse Ox O2 Delivery O2 Flow Rate FiO2 07/30/19 22:58 98.2 86 18 117/70 (86) 95 Room Air Vitals normal Sp02 EP Interpretation: reviewed, normal General Appearance: well appearing, no apparent distress, alert Head: normocephalic, atraumatic Eyes: bilateral eye PERRL, bilateral eye EOMI ENT: hearing grossly normal, normal pharynx Neck: full range of motion, supple, no meningismus Respiratory: chest non-tender, lungs clear, normal breath sounds Cardiovascular #1: regular rate, rhythm, no murmur Gastrointestinal: normal bowel sounds, no mass, no organomegaly, no bruit, non- distended, tenderness - Lower quadrant, left Musculoskeletal: back normal, gait/station normal, normal range of motion Psychiatric: mood/affect normal Medical Decision Making Diagnostic Impression: Primary Impression: Abdominal pain Qualified Codes: R10.32 - Left lower quadrant pain ER Course Presents with left lower quadrant abdominal pain. CT scan is unremarkable. There are punctate a kidney stone in the left kidney. No appendicitis. No ureteral stone. CT/MRI/US Diagnostic Results CT/MRI/US Diagnostic Results : Imaging Test Ordered: CT Scan abdomen pelvis Impression Read by radiologist. Punctated nonobstructive stone left kidney Last Vital Signs Date Time Temp Pulse Resp B/P (MAP) Pulse Ox O2 Delivery O2 Flow Rate FiO2 07/31/19 00:25 98.2 07/31/19 00:00 84 18 110/70 98 Room Air Status: improved Disposition: HOME, SELF-CARE Condition: Stable Scripts Ibuprofen* (MOTRIN*) 600 Mg Tablet 600 MG ORAL THREE TIMES A DAY, #30 TAB 0 Refills Prov: Smooth Huerta MD 07/31/19 Hydrocodone/Acetaminophen 5-325* (HYDROCODONE/ACETAMINOPHEN 5-325*) 1 Each Tablet 1 TAB ORAL Q6H PRN for For Pain, #10 TAB 0 Refills Prov: Smooth Huerta MD 07/31/19 Referrals: David Marvin MD (PCP) Additional Instructions: Follow up with in 7 days. Return if symptoms worsen. Smooth Huerta MD Jul 31, 2019 00:46
[2019-07-31 00:50] VITALS: BP 110/70
--- NOTE | 2019-07-31 01:19 | NUR ---
ER DISCHARGE NOTE: Patient is cleared to be discharged per ERMD, pt is aox4, on room air, with stable vital signs. pt was given dc and prescription instructions, pt was able to verbalize understanding, pt id band and iv site removed without complications. pt is able to ambulate with steady gait. pt took all belongings.
== END 2019-07-31 00:50 | disposition home or self-care (01) ==
LOC: EMR 07-31 00:10
DX: R10.32 Left lower quadrant pain (principal); Z90.711 Acquired absence of uterus with remaining cervical stump; Z90.49 Acquired absence of other specified parts of digestive tract; Z88.8 Allergy status to other drugs, medicaments and biological substances
CPT/HCPCS: 36415; 74176; 80048; 81003; 85025; 96374; 99284; J1885

== ENCOUNTER 2019-11-24 07:53 | Emergency (ER) | payer MEDICAID ==
[~2019-11-24] VITALS: Ht 154.9 cm; Wt 70.3 kg
[~2019-11-24 07:53] MED LIST changes: +HYDROCODON-ACE1 EA15 ORAL
--- NOTE | 2019-11-24 08:00 | NUR ---
ED Nurse Note: Pt ambulated to ED d/t neck pain, headache, and upper backpain x 1 day at 0300 s/p lockers fell on her. pt states she has been having n/v as well. Placed on bed, VSS on triage. Pt able to urinate obtained urine specimen; sent to labs.
[2019-11-24 08:03] VITALS: BP 117/67
[2019-11-24] MEDS ORDERED: Ondansetron ODT 8mg tab ORAL ONE (08:15)
[2019-11-24] MEDS ORDERED: LIDODERM700 M1 TOPIC (08:15)
[2019-11-24] MEDS ORDERED: Methocarbamol 750mg tab ORAL ONE (08:15)
[2019-11-24] MEDS ORDERED: TYLENOL325 MG ORAL (08:15)
[2019-11-24] MEDS ORDERED: ROBAXIN-750750 MG PO (08:15)
[2019-11-24] MEDS ORDERED: IBUPROFEN600 MG ORAL (08:15)
[2019-11-24] MEDS ORDERED: HYDROcodone/Acetamin 5/325 tab ORAL ONE (08:15)
--- NOTE | 2019-11-24 08:15 | Emergency Room Report ---
History of Present Illness General Chief Complaint: Head Injury Source: Patient Present Illness HPI 44-year-old female, presents with blunt head trauma patient reports that around 3 AM lockers fell on her head, no LOC she endorses nausea, vomiting feeling posterior head pain, no aggravating relieving factor severity is moderate, constant, patient also endorses neck stiffness, muscle tightness around the neck , patient reports she went to an urgent care was cleared and discharged earlier today patient presents for evaluation due to continued symptoms Allergies: Coded Allergies: METOCLOPRAMIDE (Verified Adverse Reaction, Unknown, 11/17/18) shaking PROCHLORPERAZINE (Verified Adverse Reaction, Unknown, 11/17/18) shaking Patient History Past Medical History: see triage record Reviewed Nursing Documentation: PMH: Agreed; PSxH: Agreed Nursing Documentation-PMH Past Medical History: No Stated History Hx Cardiac Problems: No Hx Hypertension: No Hx Pacemaker: No Hx Asthma: No Hx COPD: No Hx Diabetes: No Hx Cancer: No Hx Gastrointestinal Problems: No - partial hystrectomy, ovarian cyst Hx Neurological Problems: No Hx Cerebrovascular Accident: No Hx Seizures: No Review of Systems All Other Systems: negative except mentioned in HPI Physical Exam Vital Signs Date Time Temp Pulse Resp B/P (MAP) Pulse Ox O2 Delivery O2 Flow Rate FiO2 11/24/19 07:57 98.2 64 16 117/67 (84) 100 Room Air Sp02 EP Interpretation: reviewed, normal General Appearance: well appearing, no apparent distress, alert Head: normocephalic, other - Tenderness to palpation posteriorly Eyes: bilateral eye PERRL, bilateral eye EOMI ENT: uvula midline, moist mucus membranes Neck: supple, thyroid normal, supple/symm/no masses, tender lateral Respiratory: lungs clear, no respiratory distress, no retraction, no accessory muscle use Cardiovascular #1: normal peripheral pulses, regular rate, rhythm, no edema, no gallop, no murmur Gastrointestinal: non tender, soft, no guarding, no rebound Musculoskeletal: normal inspection, other - Back: No midline tenderness tender to palpation laterally cervically, no step-offs Neurologic: alert, oriented x3 Psychiatric: mood/affect normal Skin: no rash, warm/dry Medical Decision Making Diagnostic Impression: Primary Impression: Acute head injury Qualified Codes: S09.90XA - Unspecified injury of head, initial encounter ER Course 44-year-old female presents with closed head injury differential diagnosis includes concussion, closed head injury, intracranial bleed Will obtain CT scan CT scan negative counseled patient expectant management Disposition home with return precautions patient most likely with a concussion CT/MRI/US Diagnostic Results CT/MRI/US Diagnostic Results : Impression Procedure: CT C Spine no Contrast Indication: Blunt head trauma, neck stiffness and pain, muscle tightness around the neck, continuing symptoms Technique: Spiral acquisitions obtained through the cervical spine. No IV contrast utilized. Multiplanar reconstructions were generated. Total dose length product 183 mGycm. CTDIvol(s) 6 mGy. Dose reduction achieved using automated exposure control. Comparison: none Findings: There is straightening of the normal cervical lordosis. Otherwise normal bony alignment. Vertebral body heights are preserved. The disc spaces are preserved. No prevertebral soft tissue swelling. No acute fractures. No dislocations. No significant disc bulge or protrusion, spinal stenosis, or neural foraminal stenosis. The upper aerodigestive tract is unremarkable. The included extraspinal soft tissues are unremarkable. Impression: Essentially unremarkable exam. No acute bony trauma The CT scanner at [facility] is accredited by the [employer] and the scans are performed using protocols designed to limit radiation exposure to as low as reasonably achievable to attain images of sufficient resolution adequate for diagnostic evaluation. Dictated By: Omar Rebollar MD Electronically Signed By: Omar Rebollar MD Signed Date/Time 11/24/19 0900 CC: Mannei Lee MD Procedure: CT Head no Contrast Indications: Slight head trauma, struck on head by falling lockers, nausea, vomiting, posterior head pain, moderate severity, constant Technique: Spiral acquisitions obtained through the brain. Angled axial and coronal 5 x 5 mm slices were reconstructed. Total dose length product 1045 mGycm. CTDI vol(s) 53 mGy. Dose reduction achieved using automated exposure control Comparison: 11/17/2018 Findings: No acute intracranial hemorrhage or edema. No mass effect nor midline shift. Normal size ventricles and extra axial CSF spaces. Normal sprague-white differentiation. Visualized orbits are unremarkable. The mastoids are clear. The visualized sinuses are unremarkable. No significant interim change Impression: Negative The CT scanner at [facility] is accredited by the [employer] and the scans are performed using protocols designed to limit radiation exposure to as low as reasonably achievable to attain images of sufficient resolution adequate for diagnostic evaluation. Dictated By: Omar Rebollar MD Electronically Signed By: Omar Rebollar MD Signed Date/Time 11/24/19 0904 CC: Mannie Lee MD Last Vital Signs Date Time Temp Pulse Resp B/P (MAP) Pulse Ox O2 Delivery O2 Flow Rate FiO2 11/24/19 08:03 98.2 76 16 117/67 100 Room Air Disposition: HOME, SELF-CARE Condition: Stable Scripts Lidocaine Patch* (Lidoderm Patch*) 1 Each Adh..patch 1 PATCH TOPIC DAILY, #7 PATCH 0 Refills Patch(es) may remain in place for up to 12 hours in any 24-hour period. Prov: Mannie Lee MD 11/24/19 Acetaminophen (Tylenol) 325 Mg Tablet 650 MG ORAL Q6H PRN for Prn Pain/Headache/Temp > 101, #30 TAB 0 Refills Prov: Mannie Lee MD 11/24/19 Methocarbamol* (ROBAXIN-750*) 750 Mg Tablet 750 MG PO QID, #28 TAB 0 Refills Prov: Mannie Lee MD 11/24/19 Ibuprofen* (MOTRIN*) 600 Mg Tablet 600 MG ORAL Q8H PRN for For Pain, #30 TAB 0 Refills Prov: Mannie Lee MD 11/24/19 Referrals: David Marvin MD (PCP) Patient Instructions: Head Injury, Adult, [id number] Additional Instructions: The patient was provided with discharge instructions, notified to follow-up with a primary care doctor and or specialist in the next 24-48 hours, and to return to the ED if they have worsening of their symptoms. Please note that this report is being documented using Quikey technology. This can lead to erroneous entry secondary to incorrect interpretation by the dictating instrument. Mannie Lee MD Nov 24, 2019 08:15
--- NOTE | 2019-11-24 08:24 | NUR ---
ED Nurse Note: Pt went on CT accompanied by tech.
--- NOTE | 2019-11-24 09:05 | Diagnostic Imaging Report ---
Indication: Blunt head trauma, neck stiffness and pain, muscle tightness around the neck, continuing symptoms Technique: Spiral acquisitions obtained through the cervical spine. No IV contrast utilized. Multiplanar reconstructions were generated. Total dose length product 183 mGycm. CTDIvol(s) 6 mGy. Dose reduction achieved using automated exposure control. Comparison: none Findings: There is straightening of the normal cervical lordosis. Otherwise normal bony alignment. Vertebral body heights are preserved. The disc spaces are preserved. No prevertebral soft tissue swelling. No acute fractures. No dislocations. No significant disc bulge or protrusion, spinal stenosis, or neural foraminal stenosis. The upper aerodigestive tract is unremarkable. The included extraspinal soft tissues are unremarkable. Impression: Essentially unremarkable exam. No acute bony trauma The CT scanner at [facility] is accredited by the [employer] and the scans are performed using protocols designed to limit radiation exposure to as low as reasonably achievable to attain images of sufficient resolution adequate for diagnostic evaluation.
--- NOTE | 2019-11-24 09:09 | Diagnostic Imaging Report ---
Indications: Slight head trauma, struck on head by falling lockers, nausea, vomiting, posterior head pain, moderate severity, constant Technique: Spiral acquisitions obtained through the brain. Angled axial and coronal 5 x 5 mm slices were reconstructed. Total dose length product 1045 mGycm. CTDI vol(s) 53 mGy. Dose reduction achieved using automated exposure control Comparison: 11/17/2018 Findings: No acute intracranial hemorrhage or edema. No mass effect nor midline shift. Normal size ventricles and extra axial CSF spaces. Normal sprague-white differentiation. Visualized orbits are unremarkable. The mastoids are clear. The visualized sinuses are unremarkable. No significant interim change Impression: Negative The CT scanner at [facility] is accredited by the [employer] and the scans are performed using protocols designed to limit radiation exposure to as low as reasonably achievable to attain images of sufficient resolution adequate for diagnostic evaluation.
[2019-11-24 09:25] VITALS: BP 120/70
--- NOTE | 2019-11-24 09:25 | NUR ---
ER DISCHARGE NOTE: Patient is cleared to be discharged per ERMD, pt is aox4, on room air, with stable vital signs. pt was given dc and prescription instructions, pt was able to verbalize understanding, pt id band removed. pt is able to ambulate with steady gait. pt took all belongings.
== END 2019-11-24 09:25 | disposition home or self-care (01) ==
LOC: EMR 08:03
DX: S09.90XA Unspecified injury of head, initial encounter (principal); W19.XXXA Unspecified fall, initial encounter; Y92.9 Unspecified place or not applicable; Z88.8 Allergy status to other drugs, medicaments and biological substances
CPT/HCPCS: 70450; 72125; 81025; J8540; Q0162; Z7502; 99284

== ENCOUNTER 2020-08-26 21:23 | Emergency (ER) | payer MEDICAID ==
[~2020-08-26] VITALS: Ht 154.9 cm; Wt 72.6 kg
[~2020-08-26 21:23] MED LIST changes: +LIDODERM700 M1 TOPIC; +TYLENOL325 MG ORAL
--- NOTE | 2020-08-26 21:40 | NUR ---
ED Nurse Note:pt. came from home with c/o chest pain started this morning, VSS, no fever, EKG done, blood sent to labs
--- NOTE | 2020-08-26 22:11 | Emergency Room Report ---
History of Present Illness General Chief Complaint: Chest Pain Source: Patient Present Illness [facility] This is a 44-year-old female with no past medical history. She presents with chief plaint of chest pain. Onset was this morning. Pain was epigastric in nature and was sharp. Lasted about 10 minutes. Since then she has been achy. Worse with palpation. Worse with inspiration. She took some Gas-X and it did help. Tonight it came back again. Lasted for a few minutes. Pain is sharp in nature. No radiation. No diaphoresis. No shortness of breath. No nausea or vomiting. No exertional component. She had a total hysterectomy done 8 weeks ago. She subsequently had "fluids in her lungs" and enlarged heart based on work-up afterward. She was in the hospital for 3 days. Currently not on any medication. Allergies: Coded Allergies: METOCLOPRAMIDE (Verified Adverse Reaction, Unknown, 11/17/18) shaking PROCHLORPERAZINE (Verified Adverse Reaction, Unknown, 11/17/18) shaking COVID-19 Screening Contact w/high risk pt: No Experienced COVID-19 symptoms?: No COVID-19 Testing performed CRIMINAL INVESTIGATOR: No Patient History Past Medical History: see triage record, old chart reviewed Past Surgical History: hysterectomy Pertinent Family History: none Social History: Denies: smoking Now: No Immunizations: other Reviewed Nursing Documentation: PMH: Agreed; PSxH: Agreed Nursing Documentation-PMH Past Medical History: No History, Except For Hx Cardiac Problems: No Hx Hypertension: No Hx Pacemaker: No Hx Asthma: No Hx COPD: No Hx Diabetes: No Hx Cancer: No Hx Gastrointestinal Problems: No - partial hystrectomy, ovarian cyst Hx Neurological Problems: No Hx Cerebrovascular Accident: No Hx Seizures: No Review of Systems Eye: Denies: eye pain, blurred vision ENT: Denies: ear pain, nose congestion, throat swelling Respiratory: Denies: cough, shortness of breath Cardiovascular: Reports: chest pain; Denies: palpitations Gastrointestinal: Denies: abdominal pain, diarrhea, nausea, vomiting Musculoskeletal: Denies: back pain, joint pain Skin: Denies: rash Neurological: Denies: headache, numbness Endocrine: Denies: increased thirst, increased urine Hematologic/Lymphatic: Denies: easy bruising All Other Systems: negative except mentioned in HPI Physical Exam Vital Signs Date Time Temp Pulse Resp B/P (MAP) Pulse Ox O2 Delivery O2 Flow Rate FiO2 08/26/20 21:26 98.2 76 16 125/70 (88) 98 Room Air Vitals normal Sp02 EP Interpretation: reviewed, normal General Appearance: well appearing, no apparent distress, alert Head: normocephalic, atraumatic Eyes: bilateral eye PERRL, bilateral eye EOMI ENT: hearing grossly normal, normal pharynx Neck: full range of motion, supple, no meningismus Respiratory: chest non-tender, lungs clear, normal breath sounds Cardiovascular #1: regular rate, rhythm, no murmur Gastrointestinal: normal bowel sounds, non tender, no mass, no organomegaly, no bruit, non-distended Musculoskeletal: back normal, normal range of motion, gait/station normal Psychiatric: mood/affect normal Medical Decision Making Diagnostic Impression: Primary Impression: Chest pain Qualified Codes: R07.9 - Chest pain, unspecified ER Course This patient presents with atypical chest pain. No ACS, PE, dissection, CHF to name a few. Will discharge home. EKG Diagnostic Results Troponin ordered: Yes Rate: normal Rhythm: NSR ST Segments: no acute changes Rhythm Strip Diag. Results EP Interpretation: yes Rate: 75 Rhythm: NSR, no PVC's, no ectopy Chest X-Ray Diagnostic Results Chest X-Ray Diagnostic Results : Chest X-Ray Ordered: Yes # of Views/Limited/Complete: 1 View Indication: Chest Pain EP Interpretation: Yes Interpretation: no consolidation, no effusion, no pneumothorax, no acute cardiopulmonary disease Impression: No acute disease Electronically Signed by: Smooth Huerta MD Last Vital Signs Date Time Temp Pulse Resp B/P (MAP) Pulse Ox O2 Delivery O2 Flow Rate FiO2 08/26/20 21:26 98.2 76 16 125/70 (88) 98 Room Air Status: improved Disposition: HOME, SELF-CARE Condition: Stable Scripts Omeprazole Magnesium (PRILOSEC OTC) 20 Mg Tablet. 20 MG ORAL DAILY, #30 TAB Prov: Smooth Huerta MD 08/26/20 Referrals: [facility],REFERRING (PCP) Patient Instructions: Nonspecific Chest Pain Additional Instructions: Follow-up with your doctor in 7 days. Return if symptoms worsen. Smooth Huerta MD Aug 26, 2020 22:11
[2020-08-26] MEDS ORDERED: Pantoprazole Inj IVP ONE (22:15)
[2020-08-26 22:29] VITALS: BP 125/70
--- NOTE | 2020-08-26 22:29 | Diagnostic Imaging Report ---
EXAM: XR Chest, 1 View CLINICAL HISTORY: CP TECHNIQUE: Frontal view of the chest. COMPARISON: 10/31/2018. FINDINGS: Lungs: Lungs are well aerated. No consolidative change. Pleural space: No pneumothorax. No pleural effusion. Heart: Cardiomediastinal silhouette is unremarkable. Mediastinum: See above. Bones/joints: Osteopenia. Ribs are unremarkable. Gentle levoscoliosis of the thoracic spine. IMPRESSION: 1. Osteopenia. 2. No active disease.
[2020-08-26 22:37] LABS: BASOPHILS % (AUTO) 1.8 % (0.0-2.0); EOSINOPHILS % (AUTO) 3.3 % (0.0-3.0); HEMATOCRIT 34.9 % (37.0-47.0); HEMOGLOBIN 12.7 G/DL (12.0-16.0); LYMPHOCYTES % (AUTO) 44.8 % (20.0-45.0); MEAN CORPUSCULAR VOLUME 83 FL (80-99); MONOCYTES % (AUTO) 6.7 % (1.0-10.0); NEUTROPHILS % (AUTO) 43.5 % (45.0-75.0); PLATELET COUNT 233 K/UL (150-450); RED CELL DISTRIBUTION WIDTH 14.3 % (11.6-14.8); WHITE BLOOD COUNT 5.5 K/UL (4.8-10.8)
--- NOTE | 2020-08-26 22:40 | NUR ---
HAND-OFF: Report given to Suki.
[2020-08-26 22:49] LABS: ANION GAP 7 mmol/L (5-15); BLOOD UREA NITROGEN 15 mg/dL (7-18); CALCIUM 8.3 MG/DL (8.5-10.1); CARBON DIOXIDE 26 MMOL/L (21-32); CHLORIDE 106 MMOL/L (98-107); POTASSIUM 3.8 MMOL/L (3.5-5.1); SODIUM 139 MMOL/L (136-145)
[2020-08-26 22:53] LABS: ALANINE AMINOTRANSFERASE 17 U/L (12-78); ALBUMIN 3.4 G/DL (3.4-5.0); ALBUMIN/GLOBULIN RATIO 0.9 (1.0-2.7); ALKALINE PHOSPHATASE 78 U/L (46-116); ASPARTATE AMINO TRANSFERASE 15 U/L (15-37); BILIRUBIN,TOTAL 0.3 MG/DL (0.2-1.0)
[2020-08-26] MEDS ORDERED: PRILOSEC OTC20 MG ORAL (23:10)
[2020-08-26 23:15] VITALS: BP 118/62
== END 2020-08-26 23:16 | disposition home or self-care (01) ==
LOC: EMR 21:52
DX: R07.9 Chest pain, unspecified (principal); Z90.711 Acquired absence of uterus with remaining cervical stump; Z88.8 Allergy status to other drugs, medicaments and biological substances
CPT/HCPCS: 36415; 71045; 80053; 83880; 84484; 85025; 85379; 93005; 96374; S0164; Z7502; 99284

== ENCOUNTER 2020-10-01 19:11 | Emergency (ER) | payer MEDICAID ==
[~2020-10-01] VITALS: Ht 154.9 cm; Wt 70.3 kg
[~2020-10-01 19:11] MED LIST changes: +PRILOSEC OTC20 MG ORAL
[2020-10-01 19:25] VITALS: BP 113/77
--- NOTE | 2020-10-01 19:33 | NUR ---
Nurse Note: Pt walked in c/o back of neck and RT arm pain since "end of last year". Pt stated she had an injury at work and has been on PT but not effective. PT stated numbness and tinging.
[2020-10-01] MEDS ORDERED: Ketorolac 30mg Inj IM ONE (19:45)
[2020-10-01] MEDS ORDERED: HYDROcodone/Acetamin 5/325 tab ORAL ONE (19:45)
--- NOTE | 2020-10-01 19:46 | Emergency Room Report ---
History of Present Illness General Chief Complaint: Upper Extremity Injury Present Illness HPI 44 YO female presents to the ED c/o 06/25 in severity right sided neck and shoulder pain with radiation down the right arm. Pt. reports injury last November when lockers fell on her. Pt. reports She has been receiving physical therapy which has ended recently. Patient reports her next visit with primary provider overseeing her work injury is not until next month. Patient reports she is right-hand dominant. 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 Patient is reporting she will need to note for work. She also reports that she had an MRI this morning for this injury. She denies new trauma or fall. She reports pain with raising the right arm. She reports unable to sleep at night unless using a heating pad on the right shoulder. She reports intermittent electrical shooting pains down the right arm with movement. She denies LAM, nausea, vomiting, fevers, or chills. Allergies: Coded Allergies: METOCLOPRAMIDE (Verified Adverse Reaction, Unknown, 11/17/18) shaking PROCHLORPERAZINE (Verified Adverse Reaction, Unknown, 11/17/18) shaking COVID-19 Screening Contact w/high risk pt: No Experienced COVID-19 symptoms?: No COVID-19 Testing performed FRONT OFFICE SPECIALIST: No Patient History Last Menstrual Period: total hysterctomy Now: No Reviewed Nursing Documentation: PMH: Agreed; PSxH: Agreed Nursing Documentation-PMH Hx Cardiac Problems: No Hx Hypertension: No Hx Pacemaker: No Hx Asthma: No Hx COPD: No Hx Diabetes: No Hx Cancer: No Hx Gastrointestinal Problems: No - complete hystrectomy, ovarian cyst Hx Neurological Problems: No Hx Cerebrovascular Accident: No Hx Seizures: No Review of Systems All Other Systems: negative except mentioned in HPI Physical Exam Vital Signs Date Time Temp Pulse Resp B/P (MAP) Pulse Ox O2 Delivery O2 Flow Rate FiO2 10/01/20 19:13 98.8 84 16 113/77 (89) 97 Room Air Medical Decision Making PA Attestation Dr. José is my supervising Physician whom patient management has been discussed with. Diagnostic Impression: Primary Impression: Neck pain Additional Impressions: Shoulder pain, left Qualified Codes: M25.512 - Pain in left shoulder; G89.29 - Other chronic pain Radiculopathy affecting upper extremity ER Course 44 YO female presents to the ED c/o 06/25 in severity right sided neck and shoulder pain with radiation down the right arm. Pt. reports injury last November when lockers fell on her. Pt. reports She has been receiving physical therapy which has ended recently. Patient reports her next visit with primary provider overseeing her work injury is not until next month. Patient reports she is right-hand dominant. 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 Patient is reporting she will need to note for work. She also reports that she had an MRI this morning for this injury. She denies new trauma or fall. She reports pain with raising the right arm. She reports unable to sleep at night unless using a heating pad on the right shoulder. She reports intermittent electrical shooting pains down the right arm with movement. She denies LAM, nausea, vomiting, fevers, or chills. Ddx considered but are not limited to Fracture, dislocation, contusion, Sprain/Strain/Spasm, entrapment syndrome, dissection, nerve impingement, chronic inflammation, rotator cuff injury just to name a few. Vital signs: are WNL, pt. is afebrile H&PE are most consistent with non-emergent MSK pain of chronic injury greater than 1 year. PT. is being seen and treated as an outpatient. NO new trauma or fall. No focal neurological defect. ORDERS: - None required at this time, dx is clinical, pt. just had MRI performed as outpatient this am. ED INTERVENTIONS: - Lidoderm TP -Toradol IM - [place] 5mg PO - Right arm Sling applied by records management technician. Pt. remains neurovascularly intact. -I do not identify an emergent condition at this time. With current presentation, pt. is stable for close outpatient follow up and conservative tr eatment. D/w pt. to return promptly to ED with worsening or new symptoms.- Pt. verbalizes' understanding and agreement with proposed treatment plan. DISCHARGE: At this time pt. is stable for d/c to home. Will provide printed patient care instructions, and any necessary prescriptions. Care plan and follow up instructions have been discussed with the patient prior to discharge. Last Vital Signs Date Time Temp Pulse Resp B/P (MAP) Pulse Ox O2 Delivery O2 Flow Rate FiO2 10/01/20 19:25 98.8 83 16 113/77 97 Room Air Disposition: HOME, SELF-CARE Condition: Stable Scripts Ibuprofen* (MOTRIN*) 600 Mg Tablet 600 MG ORAL THREE TIMES A DAY, #20 TAB Prov: Tonya Taylor 10/01/20 Lidocaine Patch* (Lidoderm Patch*) 1 Each Adh..patch 1 PATCH TOPIC DAILY for 30 Days, #30 PATCH 0 Refills Patch(es) may remain in place for up to 12 hours in any 24-hour period. Prov: Tonya Taylor 10/01/20 Cyclobenzaprine Hcl* (FLEXERIL*) 10 Mg Tablet 10 MG ORAL THREE TIMES A DAY for 7 Days, #21 TAB Prov: Tonya Taylor 10/01/20 Departure Forms: Return to Work Return to Work Date: Oct 05, 2020 Other Restrictions: Follow up with PMD for evaluation for extension if symptoms persist. Return to Full Activity: Oct 05, 2020 Work Restrictions: None Patient Instructions: Cervical Radiculopathy, [id number], Medical Screening Exam, Radicular Pain Additional Instructions: ~ ~ An emergent medical condition has not been identified based on this patients presentation, exam and any necessary testing/imaging. The patient is determined to be stable for outpatient follow-up and management of symptoms by a primary care provider. Take medications as directed. ~! Do not drink alcohol, drive, or operate heavy machinery while taking Robaxin ( Muscle Relaxers) as this may cause drowsiness. Follow up with your Primary Care Provider within 3-5 days, even if your symptoms have resolved. Recommend neurology evaluation referral. Return sooner to ED if new symptoms occur, current symptoms become worse, or for any other reason that you suspect may be a medical emergency - Please note that this Emergency Department Report was dictated using [employer] department chair technology software, occasionally this can lead to erroneous entry secondary to interpretation by the dictation equipment. Tonya Taylor Oct 01, 2020 19:46
[2020-10-01] MEDS ORDERED: IBUPROFEN600 M1 ORAL (19:50)
[2020-10-01] MEDS ORDERED: LIDODERM700 M1 TOPIC (19:50)
[2020-10-01] MEDS ORDERED: CYCLOBENZAPRINE10 MG ORAL (19:50)
[2020-10-01 20:05] VITALS: BP 118/80
--- NOTE | 2020-10-01 20:05 | NUR ---
ED Nurse Note: Pt cleared by health care Provider for discharge. DC instructions/prescription was given and explained to pt and verbalized understanding of teachings. Instructed to follow up with PCP within 3-7 days. All medical deviecs such as ID band removed. Pt is AAO x4, ambulatory and left with all personal belongings.
== END 2020-10-01 20:05 | disposition home or self-care (01) ==
LOC: EMR 19:40
DX: G89.29 Other chronic pain (principal); M54.2 Cervicalgia; M25.512 Pain in left shoulder; M54.10 Radiculopathy, site unspecified; Z90.710 Acquired absence of both cervix and uterus; Z88.8 Allergy status to other drugs, medicaments and biological substances
CPT/HCPCS: 96372; J1885; Z7502; 99283